=== PATIENT | female | born 1950 | race Caucasian/White ===

== ENCOUNTER 2018-06-08 21:34 | Emergency (ER) | payer BC ==
[2018-06-08 22:02] VITALS: BP 133/84; PULSE 60; TEMP 98; O2SAT 99
--- NOTE | 2018-06-08 23:50 | C.PDOC ---
History Of Present Illness 67 year old female presents to the ED c/o sudden onset left knee pain that worsens with movement. Patient reports she was showering and when she got put she stared feeling the pain. Patient denies direct trauma, slipping in the shower, weakness, numbness, LOC, headache, head injury. Time Seen by Provider: 06/08/18 22:32 Chief Complaint (Nursing): Lower Extremity Problem/Injury History Per: Patient History/Exam Limitations: no limitations Onset/Duration Of Symptoms: Hrs Current Symptoms Are (Timing): Still Present Recent travel outside of the [place]: No Additional History Per: Patient - Knee Description Of Injury: Other Currently Unable To: Bend Or Move Past Medical History Reviewed: Historical Data, Nursing Documentation, Vital Signs Vital Signs: Last Vital Signs Temp 98.0 F 06/08/18 21:59 Pulse 60 06/08/18 21:59 Resp 20 06/09/18 00:01 BP 133/84 06/08/18 21:59 Pulse Ox 99 06/08/18 23:50 - Medical History PMH: HTN, Hypothyroidism Denies: Chronic Kidney Disease Surgical History: No Surg Hx Family History: States: Unknown Family Hx - Social History Hx Alcohol Use: No Hx Substance Use: No - Immunization History Hx Tetanus Toxoid Vaccination: No Hx Influenza Vaccination: No Hx Pneumococcal Vaccination: No Review Of Systems Constitutional: Negative for: Fever, Chills Cardiovascular: Negative for: Chest Pain, Palpitations Respiratory: Negative for: Cough, Shortness of Breath Gastrointestinal: Negative for: Nausea, Vomiting Musculoskeletal: Positive for: Leg Pain Skin: Negative for: Rash Neurological: Negative for: Weakness, Numbness Physical Exam - Physical Exam Appears: Non-toxic, No Acute Distress Skin: Normal Color, Warm, Dry Head: Atraumatic, Normacephalic Eye(s): bilateral: Normal Inspection Oral Mucosa: Moist Neck: Normal ROM, No Midline Cervical Tenderness, Supple Chest: Symmetrical Cardiovascular: Rhythm Regular Respiratory: Normal Breath Sounds, No Rales, No Rhonchi, No Wheezing Gastrointestinal/Abdominal: Soft, No Tenderness, No Guarding, No Rebound Extremity: Normal ROM (pain present on movement and palpation to anterior and posterior left knee), Tenderness (on movement of anterior and posterior left knee), Capillary Refill (< 2 seconds), No Deformity, No Swelling Pulses: Left Dorsalis Pedis: Normal, Right Dorsalis Pedis: Normal Neurological/Psych: Oriented x3, Normal Speech, Normal Motor, Normal Sensation Gait: Steady ED Course And Treatment O2 Sat by Pulse Oximetry: 99 (ON RA) Pulse Ox Interpretation: Normal - Other Rad Left knee X-Ray X-Ray: Interpreted by Me, Viewed By Me Interpretation: no fracture or dislocation. DJD was observed Progress Note: Patient was given tylenol extra strenght, left knee was placed on an [place] warp done by the RN. Patient was advised to follow up with PMD. 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 - Scribe Statement The provider has reviewed the documentation as recorded by the Scribe Patrice Wan All medical record entries made by the Joanieibjake were at my direction and personally dictated by me. I have reviewed the chart and agree that the record accurately reflects my personal performance of the history, physical exam, medical decision making, and the department course for this patient. I have also personally directed, reviewed, and agree with the discharge instructions and disposition.
[2018-06-09 00:02] VITALS: RESP 20
--- NOTE | 2018-06-09 08:46 | RAD ---
Date of service: 06/08/2018 PROCEDURE: Left Knee Radiographs. HISTORY: Pain. COMPARISON: None. FINDINGS: BONES: Normal. No fracture. JOINTS: . Osteoarthritis. JOINT EFFUSION: Small OTHER FINDINGS: Quadriceps insertional enthesophyte IMPRESSION: Mild osteoarthrosis. No fracture or lytic lesion. Small suprapatellar joint effusion. Quadriceps insertional enthesophyte
== END 2018-06-09 00:01 | disposition home or self-care (01) ==
LOC: C.ER 21:34
DX: M25.562 Pain in left knee (principal)

== ENCOUNTER 2019-02-25 15:36 | Inpatient (IN) | payer BC, MEDICARE ==
[2019-02-25] MEDS ORDERED: Sodium Chloride 0.9% 500 ML IV ONE (16:34)
--- NOTE | 2019-02-25 16:49 | C.PDOC ---
History Of Present Illness 68 year old female presents for evaluation of RUQ pain and swelling that started today at 11am and has not abated. The pt notes having similar symptoms in the past that have resolved on its own. Pt admits she has not had spicy food today or last night. For breakfast she had toast and cheese and a yogurt for lunch. Denies CP, SOB, fever, chills, nausea, vomiting, diarrhea, and any other associated symptoms. SHx: (-) abdominal surgery PMHx: (-) gastritis Time Seen by Provider: 02/25/19 16:15 Chief Complaint (Nursing): Abdominal Pain History Per: Patient History/Exam Limitations: no limitations Onset/Duration Of Symptoms: Hrs Current Symptoms Are (Timing): Still Present Location Of Pain/Discomfort: RUQ Radiation Of Pain To:: None Quality Of Discomfort: "Pain" Associated Symptoms: denies: Fever, Chills, Nausea, Vomiting, Chest Pain Recent travel outside of the [place]: No Past Medical History Reviewed: Historical Data, Nursing Documentation, Vital Signs Vital Signs: Last Vital Signs Temp 97.9 F 02/25/19 16:08 Pulse 62 02/25/19 16:08 Resp 18 02/25/19 16:08 BP 166/105 H 02/25/19 16:08 Pulse Ox 99 02/25/19 16:08 - Medical History PMH: HTN, Hypothyroidism Denies: Chronic Kidney Disease Family History: States: Unknown Family Hx - Social History Hx Alcohol Use: No Hx Substance Use: No - Immunization History Hx Tetanus Toxoid Vaccination: No Hx Influenza Vaccination: No Hx Pneumococcal Vaccination: No Review Of Systems Except As Marked, All Systems Reviewed And Found Negative. Constitutional: Negative for: Fever, Chills Cardiovascular: Negative for: Chest Pain Respiratory: Negative for: Shortness of Breath Gastrointestinal: Positive for: Abdominal Pain (RUQ pain and swelling. ). Negative for: Nausea, Vomiting, Diarrhea Physical Exam - Physical Exam Appears: Non-toxic, No Acute Distress Skin: Warm, Dry Head: Atraumatic, Normacephalic Eye(s): bilateral: Normal Inspection Oral Mucosa: Moist Neck: Normal ROM, Supple Chest: Symmetrical, No Deformity Cardiovascular: Rhythm Regular, No Murmur Respiratory: Normal Breath Sounds, No Rales, No Rhonchi, No Wheezing Gastrointestinal/Abdominal: Soft, Tenderness (to the RUQ. ) Extremity: Bilateral: Atraumatic, No Pedal Edema, Normal Color And Temperature, Normal ROM Neurological/Psych: Oriented x3, Normal Speech, Normal Cognition ED Course And Treatment - Laboratory Results Result Diagrams: 02/25/19 17:08 02/25/19 17:08 O2 Sat by Pulse Oximetry: 99 (RA) Pulse Ox Interpretation: Normal - Other Rad Obstructive series X-Ray: Viewed By Me, Read By Radiologist Interpretation: FINDINGS: CHEST: Lungs: Clear. Cardiovascular: Normal size heart. No pulmonary vascular congestion. No aortic atherosclerotic calcification present. Pleura: No pleural fluid. No pneumothorax. Other findings: None. ABDOMEN AND PELVIS: Bowel: Unremarkable bowel gas pattern. No evidence of mechanical obstruction. Free air: None. Bones: Unremarkable. Other findings: None. IMPRESSION: Unremarkable radiographs of chest and abdomen. No evidence of mechanical bowel obstruction. Medical Decision Making Medical Decision Making: Initial plan: -EKG -Blood sent. -Obstructive series -Urinalysis Patient with elevated liver enzymes, no fever, no elevated WBC. Will get CT abdomen. Disposition - Disposition Disposition Time: 18:27 Condition: STABLE Forms: [employer] (Georgian) - Clinical Impression Clinical Impression: Abdominal pain - Scribe Statement The provider has reviewed the documentation as recorded by the Scribe (Leela Hector) Provider Attestation: All medical record entries made by the Scribe were at my direction and personally dictated by me. I have reviewed the chart and agree that the record accurately reflects my personal performance of the history, physical exam, medical decision making, and the department course for this patient. I have also personally directed, reviewed, and agree with the discharge instructions and disposition. Physician Patient Turnover Patient Signed Over To: Juan Carlos Valadez DO Handoff Comments: pending CT and final dispo
--- NOTE | 2019-02-25 17:04 | RAD ---
Date of service: 02/25/2019 PROCEDURE: Radiographs of the chest and abdomen (obstructive series) HISTORY: abd pain COMPARISON: No prior. TECHNIQUE: AP radiograph of the chest, with upright and supine radiographs of the abdomen. 3 views obtained. FINDINGS: CHEST: Lungs: Clear. Cardiovascular: Normal size heart. No pulmonary vascular congestion. No aortic atherosclerotic calcification present Pleura: No pleural fluid. No pneumothorax. Other findings: None. ABDOMEN AND PELVIS: Bowel: Unremarkable bowel gas pattern. No evidence of mechanical obstruction. Free air: None. Bones: Unremarkable. Other findings: None. IMPRESSION: Unremarkable radiographs of chest and abdomen. No evidence of mechanical bowel obstruction.
[2019-02-25 17:15] LABS: BASO % 0.6 % (0.0-2.0); EOS # 0.2 K/uL (0.0-0.7); EOS % 2.5 % (0.0-4.0); HEMOGLOBIN 13.6 g/dL (11.0-16.0); LYMPH # 2.1 K/uL (1.0-4.3); LYMPH % 24.1 % (20.0-40.0); MEAN CELL VOLUME 92.6 fL (81.0-99.0); MEAN CORPUSCULAR HEMOGLOBIN 30.3 pg (27.0-31.0); MEAN CORPUSCULAR HGB CONC 32.7 g/dL (33.0-37.0); MEAN PLATELET VOLUME 9.8 fL (7.2-11.7); MONO # 1.1 K/uL (0.0-0.8); MONO % 12.3 % (0.0-10.0); NEUT # 5.2 K/uL (1.8-7.0); NEUT % 60.5 % (50.0-75.0); RBC 4.5 Mil/uL (3.80-5.20); RED CELL DISTRIBUTION WIDTH 13.9 % (11.5-14.5); WHITE BLOOD COUNT 8.6 K/uL (4.8-10.8)
[2019-02-25 17:17] LABS: SQUAMOUS EPITHIAL 1 /hpf (0-5); URINE BACTERIA RARE (<OCC); URINE BILIRUBIN NEGATIVE (NEGATIVE); URINE BLOOD NEGATIVE (NEGATIVE); URINE CLARITY Clear (Clear); URINE COLOR Yellow (YELLOW); URINE GLUCOSE (UA) NORMAL (Normal); URINE LEUKOCYTE ESTERASE NEG Leu/uL (Negative); URINE PROTEIN NEGATIVE (NEGATIVE); URINE UROBILINOGEN NORMAL mg/dL (0.2-1.0)
[2019-02-25 17:24] LABS: ALB/GLOB RATIO 1.4 (1.0-2.1); ALBUMIN 4.4 g/dL (3.5-5.0); ALT/SGPT 166 U/L (9-52); AST/SGOT 240 U/L (14-36); BLOOD UREA NITROGEN 23 mg/dL (7-17); CALCIUM 9.7 mg/dl (8.6-10.4); GFR NON-AFRICAN AMERICAN 37; LIPASE 203 U/L (23-300)
[2019-02-25] MEDS ORDERED: Sodium Chloride 0.9% 1,000 ML IV ONE (17:53)
--- NOTE | 2019-02-25 19:16 | CP.PCM.CON ---
<Davey Chapin - Last Filed: 02/26/19 12:04> History of Present Illness - History of Present Illness History of Present Illness: General Surgery Consult Note for Dr. Hamilton Reason for Consult: abdominal pain, cholelithiasis 68 F with PMH that includes presents to [facility] for complaint of abdominal pain. Patient was seen and evaluated in the ED. Patient states pain began ear;lier today around 11:00 after eating breakfast. Patient reports sudden onset and states it had gotten progressively worse. Patient states that she experienced same type of pain two weeks ago after eating as well. Patient rates pain as moderate. She describes pain as constant, aching located in RUQ with radiation to epigastrium. Patient reports eating/drinking can aggravate symptoms but nothing specifically alleviates them. Admits to nausea. Denies fever/chills, cp, SOB, vomiting, diarrhea, constipation, incontinence, urinary symptoms. PMH: HTN, Hypothyroidism, CKD PSH: knee and shoulder surgery ALL: NKDA Review of Systems - Review of Systems All systems: reviewed and no additional remarkable complaints except (as per HPI) Past Patient History - Infectious Disease Hx of Infectious Diseases: None - Past Social History Smoking Status: Never Smoked - CARDIAC Hx Hypertension: Yes - PULMONARY Hx Respiratory Disorders: No - NEUROLOGICAL Hx Neurological Disorder: No - HEENT Hx HEENT Problems: No - RENAL Hx Chronic Kidney Disease: No - ENDOCRINE/METABOLIC Hx Hypothyroidism: Yes - HEMATOLOGICAL/ONCOLOGICAL Hx Blood Disorders: No - INTEGUMENTARY Hx Dermatological Problems: No - MUSCULOSKELETAL/RHEUMATOLOGICAL Hx Musculoskeletal Disorders: No - GASTROINTESTINAL Hx Gastrointestinal Disorders: No - GENITOURINARY/GYNECOLOGICAL Hx Genitourinary Disorders: No - PSYCHIATRIC Hx Substance Use: No - SURGICAL HISTORY Hx Surgeries: Yes Hx Section: Yes (X1) Hx Musculoskeletal Surgery: Yes (RIGHT SHOULDER) Other/Comment: Right knee surgery. - ANESTHESIA Hx Anesthesia: Yes Hx Anesthesia Reactions: No Hx Malignant Hyperthermia: No Meds Allergies/Adverse Reactions: Allergies Allergy/AdvReac Type Severity Reaction Status Date / Time No Known Allergies Allergy Verified 02/25/19 16:13 Physical Exam - Constitutional Appears: Well, Non-toxic, No Acute Distress - Head Exam Head Exam: ATRAUMATIC, NORMOCEPHALIC - Eye Exam Eye Exam: EOMI, Normal appearance Pupil Exam: PERRL - ENT Exam ENT Exam: Mucous Membranes Moist - Neck Exam Neck exam: Positive for: Full Rom - Respiratory Exam Respiratory Exam: NORMAL BREATHING PATTERN - Cardiovascular Exam Cardiovascular Exam: REGULAR RHYTHM - GI/Abdominal Exam GI & Abdominal Exam: Normal Bowel Sounds, Soft, Tenderness (miold). absent: Distended, Firm, Guarding, Hernia, Rebound, Rigid - Extremities Exam Extremities exam: Positive for: normal capillary refill, pedal pulses present. Negative for: calf tenderness - Back Exam Back exam: absent: CVA tenderness (L), CVA tenderness (R) - Neurological Exam Neurological exam: Alert, CN II-XII Intact, Oriented x3 - Psychiatric Exam Psychiatric exam: Normal Affect, Normal Mood - Skin Skin Exam: Dry, Intact, Normal Color, Warm Results - Vital Signs Recent Vital Signs: Last Vital Signs Temp 97.9 F 02/25/19 16:08 Pulse 62 02/25/19 16:08 Resp 18 02/25/19 16:08 BP 166/105 H 02/25/19 16:08 Pulse Ox 99 02/25/19 18:34 - Labs Result Diagrams: 02/25/19 17:08 02/25/19 17:08 Labs: Laboratory Results - last 24 hr 02/25/19 02/25/19 02/25/19 16:54 17:08 17:08 WBC 8.6 RBC 4.50 Hgb 13.6 Hct 41.7 MCV 92.6 MCH 30.3 MCHC 32.7 L RDW 13.9 Plt Count 204 MPV 9.8 Neut % (Auto) 60.5 Lymph % (Auto) 24.1 Polk % (Auto) 12.3 H Eos % (Auto) 2.5 Baso % (Auto) 0.6 Neut # (Auto) 5.2 Lymph # (Auto) 2.1 Polk # (Auto) 1.1 H Eos # (Auto) 0.2 Baso # (Auto) 0.0 Sodium 139 Potassium 4.7 Chloride 105 Carbon Dioxide 28 Anion Gap 11 BUN 23 H Creatinine 1.4 H Est GFR ( Amer) 45 Est GFR (Non-Af Amer) 37 Random Glucose 96 Calcium 9.7 Total Bilirubin 0.6 AST 240 H ALT 166 H Alkaline Phosphatase 73 Troponin I < 0.0120 Total Protein 7.4 Albumin 4.4 Globulin 3.1 Albumin/Globulin Ratio 1.4 Lipase 203 Urine Color Yellow Urine Clarity Clear Urine pH 5.0 Ur Specific Higdon 1.011 Urine Protein Negative Urine Glucose (UA) Normal Urine Ketones Negative Urine Blood Negative Urine Nitrate Negative Urine Bilirubin Negative Urine Urobilinogen Normal Ur Leukocyte Esterase Neg Urine WBC (Auto) 3 Urine RBC (Auto) 1 Ur Squamous Epith Cells 1 Urine Bacteria Rare Hyaline Casts 3-5 H Assessment & Plan - Assessment and Plan (Free Text) Assessment: 68 F who presents with abdominal pain and cholelithiasis Plan: -Diet as tolerated -Pain control -Anti-emetics PRN -f/u daily labs -Trend LFTs -f/u RUQ US -Discussed with Dr. Joy Chapin PGY2 - Date & Time Date: 02/25/19 Time: 20:00 <Pasquale Hamilton - Last Filed: 02/26/19 18:32> Meds - Medications Medications: Current Medications Aspirin (Ecotrin) 81 mg PO DAILY [facility] Last Admin: 02/26/19 09:38 Dose: 81 mg Enoxaparin Sodium (Lovenox) 40 mg SC DAILY [facility] Last Admin: 02/26/19 09:38 Dose: Not Given Gabapentin (Neurontin) 300 mg PO HS [facility] Piperacillin Sod/Tazobactam (Sod 3.375 gm/ Sodium Chloride) 100 mls @ 200 mls/hr IVPB Q8H [facility]; Protocol Last Admin: 02/26/19 14:48 Dose: 200 mls/hr Sodium Chloride (Sodium Chloride 0.9%) 1,000 mls @ 100 mls/hr IV .Q10H [facility] Levothyroxine Sodium (Synthroid) 75 mcg PO DAILY@0630 [facility] Last Admin: 02/26/19 05:59 Dose: 75 mcg Nebivolol (Bystolic) 10 mg PO DAILY [facility] Last Admin: 02/26/19 09:37 Dose: 10 mg Pantoprazole Sodium (Protonix Inj) 40 mg IVP DAILY [facility] Last Admin: 02/26/19 13:10 Dose: 40 mg Pneumococcal Polyvalent Vaccine (Pneumovax 23 Vaccine) 0.5 ml IM .ONCE ONE Stop: 03/01/19 10:01 Rosuvastatin Calcium (Crestor) 5 mg PO [facility] Results - Vital Signs Recent Vital Signs: Last Vital Signs Temp 98.1 F 02/26/19 15:00 Pulse 61 02/26/19 15:00 Resp 20 02/26/19 15:00 BP 156/79 H 02/26/19 15:00 Pulse Ox 97 02/26/19 15:36 - Labs Result Diagrams: 02/26/19 08:55 02/26/19 08:55 Labs: Laboratory Results - last 24 hr 02/26/19 02/26/19 02/26/19 08:55 08:55 08:55 WBC 5.9 RBC 4.03 Hgb 12.7 Hct 37.3 MCV 92.6 MCH 31.5 H MCHC 34.0 RDW 13.9 Plt Count 209 MPV 10.2 Neut % (Auto) 51.9 Lymph % (Auto) 29.2 Polk % (Auto) 13.8 H Eos % (Auto) 4.5 H Baso % (Auto) 0.6 Neut # (Auto) 3.0 Lymph # (Auto) 1.7 Polk # (Auto) 0.8 Eos # (Auto) 0.3 Baso # (Auto) 0.0 Sodium 138 Potassium 4.3 Chloride 108 H Carbon Dioxide 25 Anion Gap 9 L BUN 19 H Creatinine 1.3 H Est GFR ( Amer) 49 Est GFR (Non-Af Amer) 41 Random Glucose 87 Calcium 8.9 Total Bilirubin 0.5 Direct Bilirubin 0.2 AST 123 H D ALT 147 H Alkaline Phosphatase 77 Total Protein 6.7 Albumin 3.9 Globulin 2.8 Albumin/Globulin Ratio 1.4 TSH 3rd Generation 2.03 Hepatitis A IgM Ab Negative Hep Bs Antigen Negative Hep B Core IgM Ab Negative Hepatitis C Antibody Negative Attending/Attestation - Attestation I have personally seen and examined this patient.: Yes I have fully participated in the care of the patient.: Yes I have reviewed all pertinent clinical information: Yes Notes (Text): Pt was seen and examined at bedside Agree with above note and assessment Pt with Gallstone and RUQ Pain Abdomen: Soft, Non tender, Negative Soto's sign, ND Labs and Radiology reviewed Ass: Cholelithiasis with elevated LFTs Plan : IV antibiotics US of Abdomen in am Repeat Labs in am c.w current mx Plan d.w pt in detail Risk and benefit explained in detail.
[2019-02-25] MEDS ORDERED: Iodixanol 320 MG/ML 100 ML BOTTLE IV ONE (19:27)
[2019-02-26] MEDS ORDERED: Sodium Chloride 0.9% 1,000 ML IV SCH (00:30)
[2019-02-26] MEDS: Levothyroxine 75 MCG TAB PO SCH (05:59)
--- NOTE | 2019-02-26 06:05 | CT ---
Date of service: 02/25/2019 PROCEDURE: CT Abdomen and Pelvis without intravenous contrast HISTORY: URQ pain, elevated liver enzymes COMPARISON: None. TECHNIQUE: Axial and reformatted coronal and sagittal CT images of the abdomen and pelvis were obtained without IV or oral contrast administration.. Contrast dose: 0 Radiation dose: Total exam DLP = 565.14 mGy-cm. This CT exam was performed using one or more of the following dose reduction techniques: Automated exposure control, adjustment of the mA and/or kV according to patient size, and/or use of iterative reconstruction technique. FINDINGS: LOWER THORAX: There are linear opacity seen at the lower lobes likely scar tissue or atelectasis. LIVER: Unremarkable. No gross lesion or ductal dilatation. GALLBLADDER AND BILE DUCTS: Gallstone and diffuse gallbladder wall thickening is noted. No definite CT evidence of acute cholecystitis or biliary obstruction. PANCREAS: Unremarkable. No gross lesion or ductal dilatation. SPLEEN: Unremarkable. ADRENALS: Unremarkable. No mass. KIDNEYS AND URETERS: Unremarkable. No hydronephrosis. No solid mass. VASCULATURE: Unremarkable. No aortic aneurysm. Diffuse atherosclerotic calcification noted in the abdominal aorta and iliac arteries. BOWEL: Unremarkable. No obstruction. No gross mural thickening. APPENDIX: Unremarkable. Normal appendix. PERITONEUM: Unremarkable. No free fluid. No free air. LYMPH NODES: Unremarkable. No enlarged lymph nodes. BLADDER: Unremarkable. REPRODUCTIVE: Unremarkable. BONES: No acute fracture. OTHER FINDINGS: None. IMPRESSION: Gallstone and diffuse gallbladder wall thickening. No definite CT evidence of acute cholecystitis. If indicated further assessment by ultrasound may be obtained. Otherwise no CT evidence of acute pathology in the abdomen and pelvis. Preliminary report was submitted by [facility] Radiology contains concordant findings.
--- NOTE | 2019-02-26 08:19 | CP.PCM.CON ---
<HarjitduniaDarwin - Last Filed: 02/26/19 09:13> History of Present Illness - History of Present Illness History of Present Illness: GI fellow PGY4, consult note. Ania Kimble is a very pleasant 68F presenting with acute RUQ abdominal pain. The pain was a severe burning in the RUQ abdomen that started yesterday after eating breakfast ~11am. The pain lasted untili 10PM lastnight. The pain radiated to the back and nothing relieved the discomfort. She had similar symptoms before, ~2 weeks ago. She denies fevers, and vomiting. She last saw a GI, Dr. Lancaster, many years ago and had EGD and colonoscopy at that time and she states she had gastritis and ulcer at that time. She is taking pepcid as needed with minimal relief. Denies NSAID use. She was planning to see him this month, but the pain was too severe, so she came to the ED. She denies any history of liver disease. On admission, she was HDS, afebrile. CBC and BMP normal. Liver enzymes were moderately elevated ~200s. Tbili and alk phos normal. PMHx - Hypothyroidism, HTN, HLD, PUD PSHx - FMHx - Denies GI related cancers SocHx - Denies alcohol, tobacco. 12pt ROS completed and negative except for above. Past Patient History - Infectious Disease Hx of Infectious Diseases: None - Past Social History Smoking Status: Never Smoked - CARDIAC Hx Hypertension: Yes - PULMONARY Hx Respiratory Disorders: No - NEUROLOGICAL Hx Neurological Disorder: No - HEENT Hx HEENT Problems: No - RENAL Hx Chronic Kidney Disease: No - ENDOCRINE/METABOLIC Hx Hypothyroidism: Yes - HEMATOLOGICAL/ONCOLOGICAL Hx Blood Disorders: No - INTEGUMENTARY Hx Dermatological Problems: No - MUSCULOSKELETAL/RHEUMATOLOGICAL Hx Musculoskeletal Disorders: No - GASTROINTESTINAL Hx Gastrointestinal Disorders: No - GENITOURINARY/GYNECOLOGICAL Hx Genitourinary Disorders: No - PSYCHIATRIC Hx Substance Use: No - SURGICAL HISTORY Hx Surgeries: Yes Hx Section: Yes (X1) Hx Musculoskeletal Surgery: Yes (RIGHT SHOULDER) Other/Comment: Right knee surgery. - ANESTHESIA Hx Anesthesia: Yes Hx Anesthesia Reactions: No Hx Malignant Hyperthermia: No Meds Allergies/Adverse Reactions: Allergies Allergy/AdvReac Type Severity Reaction Status Date / Time No Known Allergies Allergy Verified 02/25/19 16:13 - Medications Medications: Current Medications Aspirin (Ecotrin) 81 mg PO DAILY [facility] Enoxaparin Sodium (Lovenox) 40 mg SC DAILY [facility] Gabapentin (Neurontin) 300 mg PO HS [facility] Sodium Chloride (Sodium Chloride 0.9%) 1,000 mls @ 70 mls/hr IV .[id number] [facility] Last Admin: 02/26/19 01:01 Dose: 70 mls/hr Levothyroxine Sodium (Synthroid) 75 mcg PO DAILY@0630 [facility] Last Admin: 02/26/19 05:59 Dose: 75 mcg Nebivolol (Bystolic) 10 mg PO DAILY [facility] Pantoprazole Sodium (Protonix Inj) 40 mg IVP DAILY [facility] Rosuvastatin Calcium (Crestor) 5 mg PO HS [facility] Physical Exam - Constitutional Appears: Non-toxic, No Acute Distress - Head Exam Head Exam: ATRAUMATIC, NORMAL INSPECTION - Eye Exam Eye Exam: EOMI, Normal appearance - ENT Exam ENT Exam: Mucous Membranes Moist, Normal Exam - Respiratory Exam Respiratory Exam: Clear to Auscultation Bilateral, NORMAL BREATHING PATTERN - Cardiovascular Exam Cardiovascular Exam: REGULAR RHYTHM, +S1, +S2 - GI/Abdominal Exam GI & Abdominal Exam: Normal Bowel Sounds, Soft, Tenderness. absent: Distended, Guarding, Organomegaly Additional comments: Mild tenderness to deep palpation of the RUQ. - Neurological Exam Neurological exam: Alert, CN II-XII Intact, Oriented x3 - Psychiatric Exam Psychiatric exam: Normal Affect, Normal Mood - Skin Skin Exam: Normal Color, Warm Results - Vital Signs Recent Vital Signs: Last Vital Signs Temp 97.8 F 02/26/19 00:00 Pulse 71 02/26/19 00:00 Resp 20 02/26/19 00:00 BP 169/92 H 02/26/19 00:00 Pulse Ox 96 02/26/19 07:57 - Labs Result Diagrams: 02/26/19 08:55 02/25/19 17:08 Labs: Laboratory Results - last 24 hr 02/25/19 02/25/19 02/25/19 16:54 17:08 17:08 WBC 8.6 RBC 4.50 Hgb 13.6 Hct 41.7 MCV 92.6 MCH 30.3 MCHC 32.7 L RDW 13.9 Plt Count 204 MPV 9.8 Neut % (Auto) 60.5 Lymph % (Auto) 24.1 [place] % (Auto) 12.3 H Eos % (Auto) 2.5 Baso % (Auto) 0.6 Neut # (Auto) 5.2 Lymph # (Auto) 2.1 [place] # (Auto) 1.1 H Eos # (Auto) 0.2 Baso # (Auto) 0.0 Sodium 139 Potassium 4.7 Chloride 105 Carbon Dioxide 28 Anion Gap 11 BUN 23 H Creatinine 1.4 H Est GFR ( Amer) 45 Est GFR (Non-Af Amer) 37 Random Glucose 96 Calcium 9.7 Total Bilirubin 0.6 AST 240 H ALT 166 H Alkaline Phosphatase 73 Troponin I < 0.0120 Total Protein 7.4 Albumin 4.4 Globulin 3.1 Albumin/Globulin Ratio 1.4 Lipase 203 Urine Color Yellow Urine Clarity Clear Urine pH 5.0 Ur Specific [place] 1.011 Urine Protein Negative Urine Glucose (UA) Normal Urine Ketones Negative Urine Blood Negative Urine Nitrate Negative Urine Bilirubin Negative Urine Urobilinogen Normal Ur Leukocyte Esterase Neg Urine WBC (Auto) 3 Urine RBC (Auto) 1 Ur Squamous Epith Cells 1 Urine Bacteria Rare Hyaline Casts 3-5 H Assessment & Plan - Assessment and Plan (Free Text) Assessment: #Acute abdominal pain - suspected PUD vs symptomatic gallstones #Elevated Liver Enzymes #Hypothyroid #HTN/HLD PLAN: -CT reviewed, showing gallstones, retained stool in colon. No obvious acute cholecystitis -Obtain hepatitis panel, TSH -U/S abdomen PENDING -Start PPI -Recommend EGD prior to surgery, likely Wednesday -f/u surgery recommendations. -Monitor liver tests -NPO PM for EGD -I will call Gerald, her son, to update him on plan. Case discussed with Dr. Garcia, see attestation - Date & Time Date: 02/26/19 Time: 08:20 <Yobany Garcia - Last Filed: 02/26/19 22:35> Meds - Medications Medications: Current Medications Aspirin (Ecotrin) 81 mg PO DAILY [facility] Last Admin: 02/26/19 09:38 Dose: 81 mg Enoxaparin Sodium (Lovenox) 40 mg SC DAILY [facility] Last Admin: 02/26/19 09:38 Dose: Not Given Gabapentin (Neurontin) 300 mg PO [facility] Last Admin: 02/26/19 22:20 Dose: 300 mg Piperacillin Sod/Tazobactam (Sod 3.375 gm/ Sodium Chloride) 100 mls @ 200 mls/hr IVPB Q8H [facility]; Protocol Last Admin: 02/26/19 22:19 Dose: 200 mls/hr Sodium Chloride (Sodium Chloride 0.9%) 1,000 mls @ 100 mls/hr IV .Q10H [facility] Levothyroxine Sodium (Synthroid) 75 mcg PO DAILY@0630 [facility] Last Admin: 02/26/19 05:59 Dose: 75 mcg Nebivolol (Bystolic) 10 mg PO DAILY [facility] Last Admin: 02/26/19 09:37 Dose: 10 mg Pantoprazole Sodium (Protonix Inj) 40 mg IVP DAILY [facility] Last Admin: 02/26/19 13:10 Dose: 40 mg Pneumococcal Polyvalent Vaccine (Pneumovax 23 Vaccine) 0.5 ml IM .ONCE ONE Stop: 03/01/19 10:01 Rosuvastatin Calcium (Crestor) 5 mg PO [facility] Last Admin: 02/26/19 22:20 Dose: 5 mg Results - Vital Signs Recent Vital Signs: Last Vital Signs Temp 98.1 F 02/26/19 15:00 Pulse 61 02/26/19 15:00 Resp 20 02/26/19 15:00 BP 156/79 H 02/26/19 15:00 Pulse Ox 97 02/26/19 15:36 - Labs Result Diagrams: 02/26/19 08:55 02/26/19 08:55 Labs: Laboratory Results - last 24 hr 02/26/19 02/26/19 02/26/19 08:55 08:55 08:55 WBC 5.9 RBC 4.03 Hgb 12.7 Hct 37.3 MCV 92.6 MCH 31.5 H MCHC 34.0 RDW 13.9 Plt Count 209 MPV 10.2 Neut % (Auto) 51.9 Lymph % (Auto) 29.2 [place] % (Auto) 13.8 H Eos % (Auto) 4.5 H Baso % (Auto) 0.6 Neut # (Auto) 3.0 Lymph # (Auto) 1.7 [place] # (Auto) 0.8 Eos # (Auto) 0.3 Baso # (Auto) 0.0 Sodium 138 Potassium 4.3 Chloride 108 H Carbon Dioxide 25 Anion Gap 9 L BUN 19 H Creatinine 1.3 H Est GFR ( Amer) 49 Est GFR (Non-Af Amer) 41 Random Glucose 87 Calcium 8.9 Total Bilirubin 0.5 Direct Bilirubin 0.2 AST 123 H D ALT 147 H Alkaline Phosphatase 77 Total Protein 6.7 Albumin 3.9 Globulin 2.8 Albumin/Globulin Ratio 1.4 TSH 3rd Generation 2.03 Hepatitis A IgM Ab Negative Hep Bs Antigen Negative Hep B Core IgM Ab Negative Hepatitis C Antibody Negative Attending/Attestation - Attestation I have personally seen and examined this patient.: Yes I have fully participated in the care of the patient.: Yes I have reviewed all pertinent clinical information: Yes Notes (Text): 02/26/19 22:34 Chart reviewed. The pt examined this am and discussed with Dr. Young. Agree with the above-documented findings, assessment and recommendations.
[2019-02-26 09:09] LABS: BASO % 0.6 % (0.0-2.0); EOS # 0.3 K/uL (0.0-0.7); EOS % 4.5 % (0.0-4.0); HEMOGLOBIN 12.7 g/dL (11.0-16.0); LYMPH # 1.7 K/uL (1.0-4.3); LYMPH % 29.2 % (20.0-40.0); MEAN CELL VOLUME 92.6 fL (81.0-99.0); MEAN CORPUSCULAR HEMOGLOBIN 31.5 pg (27.0-31.0); MEAN PLATELET VOLUME 10.2 fL (7.2-11.7); MONO # 0.8 K/uL (0.0-0.8); MONO % 13.8 % (0.0-10.0); NEUT % 51.9 % (50.0-75.0); NRBC % 0.1 % (0.0-2.0); RBC 4.03 Mil/uL (3.80-5.20); RED CELL DISTRIBUTION WIDTH 13.9 % (11.5-14.5); WHITE BLOOD COUNT 5.9 K/uL (4.8-10.8)
[2019-02-26 09:25] LABS: ALB/GLOB RATIO 1.4 (1.0-2.1); ALBUMIN 3.9 g/dL (3.5-5.0); BILIRUBIN,DIRECT 0.2 mg/dL (0.0-0.4); CALCIUM 8.9 mg/dl (8.6-10.4)
[2019-02-26] MEDS: Enoxaparin 40 mg Syringe SC SCH (09:38)
[2019-02-26 09:51] LABS: HEPATITIS B SURFACE AG Negative (NEGATIVE)
[2019-02-26 09:57] LABS: HEPATITIS A IGM NEGATIVE (NEGATIVE); HEPATITIS B CORE AB NEGATIVE (NEGATIVE)
[2019-02-26 10:09] LABS: HEPATITIS C ANTIBODY NEGATIVE (NEGATIVE)
--- NOTE | 2019-02-26 10:38 | US ---
Date of service: 02/26/2019 HISTORY: cholelithiasis, elevated LFTs COMPARISON: None. TECHNIQUE: Sonographic evaluation of the right upper quadrant of the abdomen. FINDINGS: LIVER: Measures 11.4 cm in length. Heterogeneous diffuse increased echogenicity of the liver parenchyma. No mass. No intrahepatic bile duct dilatation. GALLBLADDER: There are small echogenic foci in gallbladder at the gallbladder wall likely represent adenomyomatosis. No evidence of significant gallbladder wall thickening or pericholecystic fluid. COMMON BILE DUCT: Measures 9.3 x 3.9 x 4.1 mm. No stones. No dilatation. PANCREAS: Unremarkable as visualized. No mass. No ductal dilatation. RIGHT KIDNEY: Measures cm in length. Normal echogenicity. No calculus, mass, or hydronephrosis. AORTA: No aneurysmal dilatation. IVC: Unremarkable. OTHER FINDINGS: None . 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 Heterogeneous mildly echogenic liver suggestive but nonspecific for hepatic steatosis.
--- NOTE | 2019-02-26 14:28 | CP.PCM.PN ---
<MerchantAnmol - Last Filed: 02/26/19 14:12> Subjective - Date & Time of Evaluation Date of Evaluation: 02/26/19 Time of Evaluation: 14:12 - Subjective Subjective: Surgery Progress note- Dr. Hamilton Patient seen and examined at bedside. Abdominal pain improved. tolerating CLD. Denies current nausea, vomiting, fevers chills. +OOB and ambulating Objective - Vital Signs/Intake and Output Vital Signs (last 24 hours): Temp Pulse Resp BP Pulse Ox 97.3 F L 74 20 155/91 H 97 02/26/19 08:22 02/26/19 08:22 02/26/19 08:22 02/26/19 08:22 02/26/19 08:22 - Medications Medications: Current Medications Aspirin (Ecotrin) 81 mg PO DAILY [facility] Last Admin: 02/26/19 09:38 Dose: 81 mg Enoxaparin Sodium (Lovenox) 40 mg SC DAILY [facility] Last Admin: 02/26/19 09:38 Dose: Not Given Gabapentin (Neurontin) 300 mg PO [facility] Sodium Chloride (Sodium Chloride 0.9%) 1,000 mls @ 70 mls/hr IV .[id number] [facility] Last Admin: 02/26/19 01:01 Dose: 70 mls/hr Piperacillin Sod/Tazobactam (Sod 3.375 gm/ Sodium Chloride) 100 mls @ 200 mls/hr IVPB Q8H [facility]; Protocol Levothyroxine Sodium (Synthroid) 75 mcg PO DAILY@0630 [facility] Last Admin: 02/26/19 05:59 Dose: 75 mcg Nebivolol (Bystolic) 10 mg PO DAILY [facility] Last Admin: 02/26/19 09:37 Dose: 10 mg Pantoprazole Sodium (Protonix Inj) 40 mg IVP DAILY [facility] Last Admin: 02/26/19 13:10 Dose: 40 mg Rosuvastatin Calcium (Crestor) 5 mg PO [facility] - Labs Labs: 02/26/19 08:55 02/26/19 08:55 - Constitutional Appears: Non-toxic, No Acute Distress - Head Exam Head Exam: ATRAUMATIC - Eye Exam Eye Exam: EOMI. absent: Scleral icterus - ENT Exam ENT Exam: Mucous Membranes Moist - Respiratory Exam Respiratory Exam: NORMAL BREATHING PATTERN. absent: Accessory Muscle Use, Res piratory Distress - Cardiovascular Exam Cardiovascular Exam: REGULAR RHYTHM. absent: Bradycardia, Tachycardia - GI/Abdominal Exam GI & Abdominal Exam: Soft, Tenderness (tenderness to deep palpation RUQ). absent: Distended, Firm, Guarding, Rigid - Extremities Exam Extremities Exam: absent: Calf Tenderness - Neurological Exam Neurological Exam: Alert, Awake, Oriented x3 - Psychiatric Exam Psychiatric exam: Normal Affect - Skin Skin Exam: Intact, Warm Assessment and Plan - Assessment and Plan (Free Text) Assessment: 68F w/ symptomatic cholelithiasis Plan: - NPO after MN - IVF/Abx - Plan for Cholecystectomy Wednesday02/27/19 - anti-emetic and analgesia PRN - discussed w/ [facility] <Pasquale Hamilton - Last Filed: 02/26/19 18:35> Objective - Vital Signs/Intake and Output Vital Signs (last 24 hours): Temp Pulse Resp BP Pulse Ox 98.1 F 61 20 156/79 H 97 02/26/19 15:00 02/26/19 15:00 02/26/19 15:00 02/26/19 15:00 02/26/19 15:36 Intake and Output: 02/26/19 02/26/19 06:59 18:59 Intake Total 1700 Balance 1700 - Medications Medications: Current Medications Aspirin (Ecotrin) 81 mg PO DAILY [facility] Last Admin: 02/26/19 09:38 Dose: 81 mg Enoxaparin Sodium (Lovenox) 40 mg SC DAILY [facility] Last Admin: 02/26/19 09:38 Dose: Not Given Gabapentin (Neurontin) 300 mg PO HS [facility] Piperacillin Sod/Tazobactam (Sod 3.375 gm/ Sodium Chloride) 100 mls @ 200 mls/hr IVPB Q8H [facility]; Protocol Last Admin: 02/26/19 14:48 Dose: 200 mls/hr Sodium Chloride (Sodium Chloride 0.9%) 1,000 mls @ 100 mls/hr IV .Q10H [facility] Levothyroxine Sodium (Synthroid) 75 mcg PO DAILY@0630 [facility] Last Admin: 02/26/19 05:59 Dose: 75 mcg Nebivolol (Bystolic) 10 mg PO DAILY [facility] Last Admin: 02/26/19 09:37 Dose: 10 mg Pantoprazole Sodium (Protonix Inj) 40 mg IVP DAILY [facility] Last Admin: 02/26/19 13:10 Dose: 40 mg Pneumococcal Polyvalent Vaccine (Pneumovax 23 Vaccine) 0.5 ml IM .ONCE ONE Stop: 03/01/19 10:01 Rosuvastatin Calcium (Crestor) 5 mg PO HS [facility] - Labs Labs: 02/26/19 08:55 02/26/19 08:55 Attending/Attestation - Attestation I have personally seen and examined this patient.: Yes I have fully participated in the care of the patient.: Yes I have reviewed all pertinent clinical information, including history, physical exam and plan: Yes Notes (Text): Pt with Cholelithiasis with Cholecystitis US of abdomen and CT scan reviewed. OR for Lap Cholecystectomy tomorrow Consent C.w IV antibiotics NPO, IVF Plan d.w pt in detail Risk and benefit explained in detail.
[2019-02-26] MEDS: Piperacillin/Tazobact 3.375 GM in Sodium Chloride 100 ML IVPB SCH ×2 (14:48→22:19)
--- NOTE | 2019-02-26 16:59 | CP.PCM.HP ---
Past Patient History - Infectious Disease Hx of Infectious Diseases: None - Past Social History Smoking Status: Never Smoked - CARDIAC Hx Hypertension: Yes - PULMONARY Hx Respiratory Disorders: No - NEUROLOGICAL Hx Neurological Disorder: No - HEENT Hx HEENT Problems: No - RENAL Hx Chronic Kidney Disease: No - ENDOCRINE/METABOLIC Hx Hypothyroidism: Yes - HEMATOLOGICAL/ONCOLOGICAL Hx Blood Disorders: No - INTEGUMENTARY Hx Dermatological Problems: No - MUSCULOSKELETAL/RHEUMATOLOGICAL Hx Musculoskeletal Disorders: No - GASTROINTESTINAL Hx Gastrointestinal Disorders: No - GENITOURINARY/GYNECOLOGICAL Hx Genitourinary Disorders: No - PSYCHIATRIC Hx Substance Use: No - SURGICAL HISTORY Hx Surgeries: Yes Hx Section: Yes (X1) Hx Musculoskeletal Surgery: Yes (RIGHT SHOULDER) Other/Comment: Right knee surgery. - ANESTHESIA Hx Anesthesia: Yes Hx Anesthesia Reactions: No Hx Malignant Hyperthermia: No Meds Allergies/Adverse Reactions: Allergies Allergy/AdvReac Type Severity Reaction Status Date / Time No Known Allergies Allergy Verified 02/25/19 16:13 Physical Exam - Constitutional Appears: Well - Head Exam Head Exam: ATRAUMATIC, NORMAL INSPECTION, NORMOCEPHALIC - Eye Exam Eye Exam: EOMI, Normal appearance, PERRL Pupil Exam: NORMAL ACCOMODATION, PERRL - ENT Exam ENT Exam: Mucous Membranes Moist, Normal Exam - Neck Exam Neck exam: Positive for: Normal Inspection - Respiratory Exam Respiratory Exam: Decreased Breath Sounds - Cardiovascular Exam Cardiovascular Exam: REGULAR RHYTHM, +S1, +S2 - GI/Abdominal Exam GI & Abdominal Exam: Diminished Bowel Sounds, Soft - Rectal Exam Rectal Exam: Deferred - Neurological Exam Neurological exam: Oriented x3 Results - Vital Signs Recent Vital Signs: Last Vital Signs Temp 98.1 F 02/26/19 15:00 Pulse 61 02/26/19 15:00 Resp 20 02/26/19 15:00 BP 156/79 H 02/26/19 15:00 Pulse Ox 97 02/26/19 15:36 - Labs Result Diagrams: 02/26/19 08:55 02/26/19 08:55 Labs: Laboratory Results - last 24 hr 02/25/19 02/25/19 02/25/19 16:54 17:08 17:08 WBC 8.6 RBC 4.50 Hgb 13.6 Hct 41.7 MCV 92.6 MCH 30.3 MCHC 32.7 L RDW 13.9 Plt Count 204 MPV 9.8 Neut % (Auto) 60.5 Lymph % (Auto) 24.1 [place] % (Auto) 12.3 H Eos % (Auto) 2.5 Baso % (Auto) 0.6 Neut # (Auto) 5.2 Lymph # (Auto) 2.1 [place] # (Auto) 1.1 H Eos # (Auto) 0.2 Baso # (Auto) 0.0 Sodium 139 Potassium 4.7 Chloride 105 Carbon Dioxide 28 Anion Gap 11 BUN 23 H Creatinine 1.4 H Est GFR ( Amer) 45 Est GFR (Non-Af Amer) 37 Random Glucose 96 Calcium 9.7 Total Bilirubin 0.6 Direct Bilirubin AST 240 H ALT 166 H Alkaline Phosphatase 73 Troponin I < 0.0120 Total Protein 7.4 Albumin 4.4 Globulin 3.1 Albumin/Globulin Ratio 1.4 Lipase 203 TSH 3rd Generation Urine Color Yellow Urine Clarity Clear Urine pH 5.0 Ur Specific [place] 1.011 Urine Protein Negative Urine Glucose (UA) Normal Urine Ketones Negative Urine Blood Negative Urine Nitrate Negative Urine Bilirubin Negative Urine Urobilinogen Normal Ur Leukocyte Esterase Neg Urine WBC (Auto) 3 Urine RBC (Auto) 1 Ur Squamous Epith Cells 1 Urine Bacteria Rare Hyaline Casts 3-5 H Hepatitis A IgM Ab Hep Bs Antigen Hep B Core IgM Ab Hepatitis C Antibody 02/26/19 02/26/19 02/26/19 08:55 08:55 08:55 WBC 5.9 RBC 4.03 Hgb 12.7 Hct 37.3 MCV 92.6 MCH 31.5 H MCHC 34.0 RDW 13.9 Plt Count 209 MPV 10.2 Neut % (Auto) 51.9 Lymph % (Auto) 29.2 [place] % (Auto) 13.8 H Eos % (Auto) 4.5 H Baso % (Auto) 0.6 Neut # (Auto) 3.0 Lymph # (Auto) 1.7 [place] # (Auto) 0.8 Eos # (Auto) 0.3 Baso # (Auto) 0.0 Sodium 138 Potassium 4.3 Chloride 108 H Carbon Dioxide 25 Anion Gap 9 L BUN 19 H Creatinine 1.3 H Est GFR ( Amer) 49 Est GFR (Non-Af Amer) 41 Random Glucose 87 Calcium 8.9 Total Bilirubin 0.5 Direct Bilirubin 0.2 AST 123 H D ALT 147 H Alkaline Phosphatase 77 Troponin I Total Protein 6.7 Albumin 3.9 Globulin 2.8 Albumin/Globulin Ratio 1.4 Lipase TSH 3rd Generation 2.03 Urine Color Urine Clarity Urine pH Ur Specific [place] Urine Protein Urine Glucose (UA) Urine Ketones Urine Blood Urine Nitrate Urine Bilirubin Urine Urobilinogen Ur Leukocyte Esterase Urine WBC (Auto) Urine RBC (Auto) Ur Squamous Epith Cells Urine Bacteria Hyaline Casts Hepatitis A IgM Ab Negative Hep Bs Antigen Negative Hep B Core IgM Ab Negative Hepatitis C Antibody Negative
[2019-02-27] MEDS: Sodium Chloride 0.9% 1,000 ML IV SCH ×4 (04:19→21:59)
[2019-02-27] MEDS: Piperacillin/Tazobact 3.375 GM in Sodium Chloride 100 ML IVPB SCH ×3 (04:19→21:58)
[2019-02-27] MEDS: Levothyroxine 75 MCG TAB PO SCH (06:20)
[2019-02-27 07:41] LABS: BASO % 0.9 % (0.0-2.0); EOS # 0.2 K/uL (0.0-0.7); EOS % 5.2 % (0.0-4.0); HEMOGLOBIN 13.2 g/dL (11.0-16.0); LYMPH # 1.5 K/uL (1.0-4.3); LYMPH % 31.8 % (20.0-40.0); MEAN CELL VOLUME 93.2 fL (81.0-99.0); MEAN CORPUSCULAR HEMOGLOBIN 31.2 pg (27.0-31.0); MEAN CORPUSCULAR HGB CONC 33.5 g/dL (33.0-37.0); MEAN PLATELET VOLUME 10.2 fL (7.2-11.7); MONO # 0.6 K/uL (0.0-0.8); MONO % 12.9 % (0.0-10.0); NEUT # 2.3 K/uL (1.8-7.0); NEUT % 49.2 % (50.0-75.0); RBC 4.25 Mil/uL (3.80-5.20); RED CELL DISTRIBUTION WIDTH 13.9 % (11.5-14.5); WHITE BLOOD COUNT 4.7 K/uL (4.8-10.8)
--- NOTE | 2019-02-27 07:50 | CP.PCM.PN ---
<Davey Chapin - Last Filed: 02/27/19 19:03> Subjective - Date & Time of Evaluation Date of Evaluation: 02/27/19 Time of Evaluation: 07:30 - Subjective Subjective: Surgery Progress note- Dr. Hamilton Patient seen and examined at bedside. Abdominal pain improving. She is tolerating diet. No complaints at this time. Denies nausea, vomiting, fevers chills. +flatus, BM, +OOB and ambulating Objective - Vital Signs/Intake and Output Vital Signs (last 24 hours): Temp Pulse Resp BP Pulse Ox 97.8 F 63 20 138/89 96 02/27/19 07:00 02/27/19 07:00 02/27/19 07:00 02/27/19 07:00 02/27/19 07:00 Intake and Output: 02/27/19 02/27/19 06:59 18:59 Intake Total 800 Balance 800 - Medications Medications: Current Medications Aspirin (Ecotrin) 81 mg PO DAILY [facility] Last Admin: 02/26/19 09:38 Dose: 81 mg Enoxaparin Sodium (Lovenox) 40 mg SC DAILY [facility] Last Admin: 02/26/19 09:38 Dose: Not Given Gabapentin (Neurontin) 300 mg PO HS [facility] Last Admin: 02/26/19 22:20 Dose: 300 mg Piperacillin Sod/Tazobactam (Sod 3.375 gm/ Sodium Chloride) 100 mls @ 200 mls/h r IVPB Q8H [facility]; Protocol Last Admin: 02/27/19 04:19 Dose: 200 mls/hr Sodium Chloride (Sodium Chloride 0.9%) 1,000 mls @ 100 mls/hr IV .Q10H [facility] Last Admin: 02/27/19 04:22 Dose: Not Given Levothyroxine Sodium (Synthroid) 75 mcg PO DAILY@0630 [facility] Last Admin: 02/27/19 06:20 Dose: 75 mcg Nebivolol (Bystolic) 10 mg PO DAILY [facility] Last Admin: 02/26/19 09:37 Dose: 10 mg Pantoprazole Sodium (Protonix Inj) 40 mg IVP DAILY [facility] Last Admin: 02/26/19 13:10 Dose: 40 mg Pneumococcal Polyvalent Vaccine (Pneumovax 23 Vaccine) 0.5 ml IM .ONCE ONE Stop: 03/01/19 10:01 Rosuvastatin Calcium (Crestor) 5 mg PO HS [facility] Last Admin: 02/26/19 22:20 Dose: 5 mg - Labs Labs: 02/27/19 07:28 02/26/19 08:55 - Additional Findings Additional findings: - Constitutional Appears: Non-toxic, No Acute Distress - Head Exam Head Exam: ATRAUMATIC - Eye Exam Eye Exam: EOMI. absent: Scleral icterus - ENT Exam ENT Exam: Mucous Membranes Moist - Respiratory Exam Respiratory Exam: NORMAL BREATHING PATTERN. absent: Accessory Muscle Use, Respiratory Distress - Cardiovascular Exam Cardiovascular Exam: REGULAR RHYTHM. absent: Bradycardia, Tachycardia - GI/Abdominal Exam GI & Abdominal Exam: Soft, Tenderness (tenderness to deep palpation RUQ). absent: Distended, Firm, Guarding, Rigid - Extremities Exam Extremities Exam: absent: Calf Tenderness - Neurological Exam Neurological Exam: Alert, Awake, Oriented x3 - Psychiatric Exam Psychiatric exam: Normal Affect - Skin Skin Exam: Intact, Warm Assessment and Plan - Assessment and Plan (Free Text) Assessment: 68F w/ symptomatic cholelithiasis Plan: - Diet as tolerated - MRCP without filling defect - LFTs downtrending - Plan for Cholecystectomy Wednesday03/01/19 - anti-emetic and analgesia PRN - discussed w/ Dr. Joy Chapin PGY2 <Pasquale Hamilton - Last Filed: 03/01/19 17:27> Objective - Vital Signs/Intake and Output Vital Signs (last 24 hours): Temp Pulse Resp BP Pulse Ox 97.9 F 66 20 122/75 93 L 03/01/19 11:10 03/01/19 11:10 03/01/19 11:10 03/01/19 11:10 03/01/19 11:10 Intake and Output: 03/01/19 03/01/19 06:59 18:59 Intake Total 500 1565 Balance 500 1565 - Medications Medications: Current Medications Aspirin (Ecotrin) 81 mg PO DAILY [facility] Last Admin: 03/01/19 10:52 Dose: Not Given Brimonidine Tartrate (Alphagan 0.2% Opht) 1 ml OU BID [facility] Last Admin: 03/01/19 10:52 Dose: Not Given Enoxaparin Sodium (Lovenox) 40 mg SC DAILY [facility] Last Admin: 02/28/19 09:54 Dose: Not Given Gabapentin (Neurontin) 300 mg PO HS [facility] Last Admin: 02/28/19 21:04 Dose: 300 mg Home Med (Patient's Own Drops) 1 drop OU HS [facility] Last Admin: 02/28/19 21:08 Dose: 1 drop Piperacillin Sod/Tazobactam (Sod 2.25 gm/ Sodium Chloride) 100 mls @ 200 mls/hr IVPB Q8H [facility]; Protocol Last Admin: 03/01/19 13:40 Dose: 200 mls/hr Levothyroxine Sodium (Synthroid) 75 mcg PO DAILY@0630 [facility] Last Admin: 03/01/19 05:30 Dose: Not Given Nebivolol (Bystolic) 10 mg PO DAILY [facility] Last Admin: 03/01/19 10:52 Dose: Not Given Pantoprazole Sodium (Protonix Inj) 40 mg IVP DAILY [facility] Last Admin: 03/01/19 10:52 Dose: Not Given Pneumococcal Polyvalent Vaccine (Pneumovax 23 Vaccine) 0.5 ml IM .ONCE ONE Stop: 03/02/19 10:01 Rosuvastatin Calcium (Crestor) 5 mg PO [facility] Last Admin: 02/26/19 22:20 Dose: 5 mg Tobramycin/Dexamethasone (Tobradex Opht Susp) 0 ml OU Q4 [facility] Stop: 03/02/19 14:23 - Labs Labs: 03/01/19 15:04 03/01/19 15:04 PT 11.7 SECONDS (9.7-12.2) 03/01/19 15:04 INR 1.1 03/01/19 15:04 APTT 31 SECONDS (21-34) 03/01/19 15:04 Attending/Attestation - Attestation I have personally seen and examined this patient.: Yes I have fully participated in the care of the patient.: Yes I have reviewed all pertinent clinical information, including history, physical exam and plan: Yes Notes (Text): Pt was seen and examined at bedside Agree with above note and assessment Pt had EGD today suggestive of Gastritis LFT is trending up f.u Hepatitis panel Will plan Lap Cholecystectomy on wednesday Plan d.w pt in detail.
[2019-02-27 07:51] LABS: ALB/GLOB RATIO 1.5 (1.0-2.1); ALBUMIN 4.1 g/dL (3.5-5.0); CALCIUM 9.1 mg/dl (8.6-10.4)
[2019-02-27] MEDS: Enoxaparin 40 mg Syringe SC SCH (09:04)
[2019-02-27] MEDS ORDERED: Lactated Ringer's 1,000 ML IV ONE (09:10)
[2019-02-27] MEDS ORDERED: Propofol 10 mg/ml Inj (20 ML) ONE (09:14)
[2019-02-27 10:23] LABS: IMMUNOGLOBULIN G 1040.3 mg/dL (700.0-1600.0); TRANSFERRIN 222.73 mg/dL (206-381)
--- NOTE | 2019-02-27 13:42 | CP.PCM.PN ---
Subjective - Date & Time of Evaluation Date of Evaluation: 02/27/19 - Subjective Subjective: Patient seen and examined today No nausea No vomiting No fever No diarrhea No dizziness No shortness of breath Objective - Vital Signs/Intake and Output Vital Signs (last 24 hours): Temp Pulse Resp BP Pulse Ox 97.8 F 70 20 141/80 100 02/27/19 09:30 02/27/19 10:00 02/27/19 10:00 02/27/19 10:00 02/27/19 10:00 Intake and Output: 02/27/19 02/27/19 06:59 18:59 Intake Total 800 Balance 800 - Medications Medications: Current Medications Aspirin (Ecotrin) 81 mg PO DAILY [facility] Last Admin: 02/27/19 09:03 Dose: Not Given Enoxaparin Sodium (Lovenox) 40 mg SC DAILY [facility] Last Admin: 02/27/19 09:04 Dose: Not Given Gabapentin (Neurontin) 300 mg PO [facility] Last Admin: 02/26/19 22:20 Dose: 300 mg Piperacillin Sod/Tazobactam (Sod 3.375 gm/ Sodium Chloride) 100 mls @ 200 mls/hr IVPB Q8H [facility]; Protocol Last Admin: 02/27/19 13:11 Dose: 200 mls/hr Sodium Chloride (Sodium Chloride 0.9%) 1,000 mls @ 100 mls/hr IV .Q10H [facility] Last Admin: 02/27/19 10:04 Dose: Not Given Levothyroxine Sodium (Synthroid) 75 mcg PO DAILY@0630 [facility] Last Admin: 02/27/19 06:20 Dose: 75 mcg Nebivolol (Bystolic) 10 mg PO DAILY [facility] Last Admin: 02/27/19 09:05 Dose: Not Given Pantoprazole Sodium (Protonix Inj) 40 mg IVP DAILY [facility] Last Admin: 02/27/19 10:41 Dose: 40 mg Pneumococcal Polyvalent Vaccine (Pneumovax 23 Vaccine) 0.5 ml IM .ONCE ONE Stop: 03/01/19 10:01 Rosuvastatin Calcium (Crestor) 5 mg PO [facility] Last Admin: 02/26/19 22:20 Dose: 5 mg - Labs Labs: 02/27/19 07:28 02/27/19 07:28 - Constitutional Appears: Well - Head Exam Head Exam: ATRAUMATIC, NORMAL INSPECTION, NORMOCEPHALIC - Eye Exam Eye Exam: EOMI, Normal appearance, PERRL Pupil Exam: NORMAL ACCOMODATION, PERRL - ENT Exam ENT Exam: Mucous Membranes Moist, Normal Exam - Neck Exam Neck Exam: Full ROM, Normal Inspection. absent: Lymphadenopathy - Respiratory Exam Respiratory Exam: Decreased Breath Sounds - Cardiovascular Exam Cardiovascular Exam: REGULAR RHYTHM, +S1, +S2 - GI/Abdominal Exam GI & Abdominal Exam: Soft, Diminished Bowel Sounds - Rectal Exam Rectal Exam: Deferred - Neurological Exam Neurological Exam: Oriented x3 Assessment and Plan - Assessment and Plan (Free Text) Plan: vitals reviewed medications reviewed labs reviewed
--- NOTE | 2019-02-27 16:59 | CARD ---
APPROVED REPORT Date of service: 02/27/2019 EXAM: Two-dimensional and M-mode echocardiogram with Doppler and color Doppler. Other Information Quality : GoodRhythm : INDICATION medical clearance for surgery in AM 2D DIMENSIONS IVSd0.9 (0.7-1.1cm)LVDd4.1 (3.9-5.9cm) PWd0.9 (0.7-1.1cm)LA Dwdnaf06 (18-58mL) LVDs2.7 (2.5-4.0cm)FS (%) 35.5 % LVEF (%)65.4 (>50%)LVEF (Wahl's)63.24 % M-Mode DIMENSIONS Left Atrium (MM)3.25 (2.5-4.0cm)IVSd0.83 (0.7-1.1cm) Aortic Root3.65 (2.2-3.7cm)LVDd4.93 (4.0-5.6cm) Aortic Cusp Exc.2.06 (1.5-2.0cm)PWd0.95 (0.7-1.1cm) FS (%) 35 %LVDs3.18 (2.0-3.8cm) Mitral Valve MV E Dgrpjzln23.5cm/sMV A Hzlszoov59.2cm/sE/A ratio0.8 TDI Lateral E' Peak V10.16cm/sMedial E' Peak V7.19cm/sE/Lateral E'5.3 E/Medial E'7.4 Tricuspid Valve TR Peak Fdigagmd724ig/sTR Peak Gr.[id number] LEFT VENTRICLE The left ventricle is normal size. There is normal left ventricular wall thickness. The left ventricular function is normal. The left ventricular ejection fraction is within the normal range. There is normal LV segmental wall motion. Transmitral Doppler flow pattern is Grade I-abnormal relaxation pattern. RIGHT VENTRICLE The right ventricle is normal size. There is normal right ventricular wall thickness. The right ventricular systolic function is normal. ATRIA The left atrium size is normal. The right atrium size is normal. AORTIC VALVE The aortic valve is mildly thickened. No aortic regurgitation is present. There is no aortic valvular stenosis. MITRAL VALVE The mitral valve is mildly thickened. There is no mitral valve stenosis. Mitral regurgitation is trace. TRICUSPID VALVE The tricuspid valve is normal in structure. There is trace tricuspid regurgitation. PULMONIC VALVE The pulmonary valve is normal in structure. There is trace pulmonic valvular regurgitation. GREAT VESSELS The aortic root is normal in size. The IVC is normal in size and collapses >50% with inspiration. <Conclusion> There is normal left ventricular wall thickness. The left ventricular function is normal. The left ventricular ejection fraction is within the normal range. There is normal LV segmental wall motion. Transmitral Doppler flow pattern is Grade I-abnormal relaxation pattern. Mitral regurgitation is trace. There is trace tricuspid regurgitation.
[2019-02-27] MEDS: Brimonidine 0.2% Opth Sol (5ml) OU SCH (18:54)
[2019-02-27 19:06] LABS: IRON 86 ug/dL (37-170)
[2019-02-27 19:16] LABS: % IRON SATURATION 27 (20-55); TOTAL IRON BINDING CAPACITY 319 ug/dL (250-450)
--- NOTE | 2019-02-27 19:37 | CP.PCM.CON ---
History of Present Illness - History of Present Illness History of Present Illness: REASON FOR CONSULT : CKD .. EGFR 39 ML /M PT IS WELL KNOWN TO ME FROM OFFICE VISITS WITH H/O CKD HTN AND HYPOTHYROIDISM 68 year old female presents for evaluation of RUQ pain and swelling that started today at 11am and has not abated. The pt notes having similar symptoms in the past that have resolved on its own. Pt admits she has not had spicy food today or last night. For breakfast she had toast and cheese and a yogurt for lunch. Denies CP, SOB, fever, chills, nausea, vomiting, diarrhea, and any other associated symptoms. SHx: (-) abdominal surgery PMHx: (-) gastritis Past Patient History - Infectious Disease Hx of Infectious Diseases: None - Past Social History Smoking Status: Never Smoked - CARDIAC Hx Hypertension: Yes - PULMONARY Hx Respiratory Disorders: No - NEUROLOGICAL Hx Neurological Disorder: No - HEENT Hx HEENT Problems: No - RENAL Hx Chronic Kidney Disease: No - ENDOCRINE/METABOLIC Hx Hypothyroidism: Yes - HEMATOLOGICAL/ONCOLOGICAL Hx Blood Disorders: No - INTEGUMENTARY Hx Dermatological Problems: No - MUSCULOSKELETAL/RHEUMATOLOGICAL Hx Musculoskeletal Disorders: No - GASTROINTESTINAL Hx Gastrointestinal Disorders: No - GENITOURINARY/GYNECOLOGICAL Hx Genitourinary Disorders: No - PSYCHIATRIC Hx Substance Use: No - SURGICAL HISTORY Hx Surgeries: Yes Hx Section: Yes (X1) Hx Musculoskeletal Surgery: Yes (RIGHT SHOULDER) Other/Comment: Right knee surgery. - ANESTHESIA Hx Anesthesia: Yes Hx Anesthesia Reactions: No Hx Malignant Hyperthermia: No Meds Allergies/Adverse Reactions: Allergies Allergy/AdvReac Type Severity Reaction Status Date / Time No Known Allergies Allergy Verified 02/25/19 16:13 - Medications Medications: Current Medications Aspirin (Ecotrin) 81 mg PO DAILY [facility] Last Admin: 02/27/19 09:03 Dose: Not Given Brimonidine Tartrate (Alphagan 0.2% Opht) 1 ml OU BID [facility] Enoxaparin Sodium (Lovenox) 40 mg SC DAILY [facility] Last Admin: 02/27/19 09:04 Dose: Not Given Gabapentin (Neurontin) 300 mg PO HS [facility] Last Admin: 02/26/19 22:20 Dose: 300 mg Home Med (Patient's Own Drops) 1 drop OU HS [facility] Piperacillin Sod/Tazobactam (Sod 3.375 gm/ Sodium Chloride) 100 mls @ 200 mls/hr IVPB Q8H [facility]; Protocol Last Admin: 02/27/19 13:11 Dose: 200 mls/hr Sodium Chloride (Sodium Chloride 0.9%) 1,000 mls @ 100 mls/hr IV .Q10H [facility] Last Admin: 02/27/19 10:04 Dose: Not Given Levothyroxine Sodium (Synthroid) 75 mcg PO DAILY@0630 [facility] Last Admin: 02/27/19 06:20 Dose: 75 mcg Nebivolol (Bystolic) 10 mg PO DAILY [facility] Last Admin: 02/27/19 09:05 Dose: Not Given Pantoprazole Sodium (Protonix Inj) 40 mg IVP DAILY [facility] Last Admin: 02/27/19 10:41 Dose: 40 mg Pneumococcal Polyvalent Vaccine (Pneumovax 23 Vaccine) 0.5 ml IM .ONCE ONE Stop: 03/01/19 10:01 Rosuvastatin Calcium (Crestor) 5 mg PO [facility] Last Admin: 02/26/19 22:20 Dose: 5 mg Results - Vital Signs Recent Vital Signs: Last Vital Signs Temp 98.1 F 02/27/19 16:00 Pulse 74 02/27/19 16:00 Resp 20 02/27/19 16:00 BP 145/81 02/27/19 16:00 Pulse Ox 96 02/27/19 16:00 - Labs Result Diagrams: 02/27/19 07:28 02/27/19 07:28 Labs: Laboratory Results - last 24 hr 02/27/19 02/27/19 02/27/19 07:28 07:28 07:28 WBC 4.7 L RBC 4.25 Hgb 13.2 Hct 39.6 MCV 93.2 MCH 31.2 H MCHC 33.5 RDW 13.9 Plt Count 210 MPV 10.2 Neut % (Auto) 49.2 L Lymph % (Auto) 31.8 Barry % (Auto) 12.9 H Eos % (Auto) 5.2 H Baso % (Auto) 0.9 Neut # (Auto) 2.3 Lymph # (Auto) 1.5 [place] # (Auto) 0.6 Eos # (Auto) 0.2 Baso # (Auto) 0.0 Sodium 140 Potassium 4.3 Chloride 110 H Carbon Dioxide 25 Anion Gap 10 BUN 16 Creatinine 1.6 H Est GFR ( Amer) 39 Est GFR (Non-Af Amer) 32 Random Glucose 97 Calcium 9.1 Iron TIBC % Saturation Transferrin Ferritin 120.0 Total Bilirubin 1.1 AST 410 H D ALT 378 H D Alkaline Phosphatase 123 Total Protein 6.8 Albumin 4.1 Globulin 2.7 Albumin/Globulin Ratio 1.5 IgG Blood Type A POSITIVE Antibody Screen Negative 02/27/19 02/27/19 10:02 17:16 WBC RBC Hgb Hct MCV MCH MCHC RDW Plt Count MPV Neut % (Auto) Lymph % (Auto) [place] % (Auto) Eos % (Auto) Baso % (Auto) Neut # (Auto) Lymph # (Auto) [place] # (Auto) Eos # (Auto) Baso # (Auto) Sodium Potassium Chloride Carbon Dioxide Anion Gap BUN Creatinine Est GFR ( Amer) Est GFR (Non-Af Amer) Random Glucose Calcium Iron 86 TIBC 319 % Saturation 27 Transferrin 222.73 Ferritin Total Bilirubin AST ALT Alkaline Phosphatase Total Protein Albumin Globulin Albumin/Globulin Ratio IgG 1040.3 Blood Type Antibody Screen Assessment & Plan - Assessment and Plan (Free Text) Assessment: CKD STAGE 3 .. EGFR 39 ML/M PT IS AT BASELINE MMP PRESENTED WITH ACUTE CHOLYCYSTITIS P : C/O CURRENT MEDS C/O CURRENT CARE FOR LAP ASAD IN AM - Date & Time Date: 02/27/19 Time: 15:00
[2019-02-27] MEDS: TRAVATAN Z 0.004% OPHTHALMIC SOLN OU SCH (21:59)
[2019-02-28] MEDS: Piperacillin/Tazobact 3.375 GM in Sodium Chloride 100 ML IVPB SCH (04:24)
[2019-02-28] MEDS: Sodium Chloride 0.9% 1,000 ML IV SCH ×2 (05:26→16:08)
[2019-02-28] MEDS: Levothyroxine 75 MCG TAB PO SCH (05:29)
[2019-02-28 06:28] LABS: BASO # 0.1 K/uL (0.0-0.2); BASO % 0.7 % (0.0-2.0); EOS # 0.4 K/uL (0.0-0.7); EOS % 5.9 % (0.0-4.0); HEMOGLOBIN 12.4 g/dL (11.0-16.0); LYMPH # 2.2 K/uL (1.0-4.3); LYMPH % 31.9 % (20.0-40.0); MEAN CORPUSCULAR HEMOGLOBIN 30.6 pg (27.0-31.0); MEAN CORPUSCULAR HGB CONC 33.2 g/dL (33.0-37.0); MEAN PLATELET VOLUME 10.2 fL (7.2-11.7); MONO # 0.9 K/uL (0.0-0.8); MONO % 12.6 % (0.0-10.0); NEUT # 3.4 K/uL (1.8-7.0); NEUT % 48.9 % (50.0-75.0); RBC 4.04 Mil/uL (3.80-5.20); RED CELL DISTRIBUTION WIDTH 14.2 % (11.5-14.5); WHITE BLOOD COUNT 6.9 K/uL (4.8-10.8)
[2019-02-28 07:31] LABS: ALB/GLOB RATIO 1.3 (1.0-2.1); ALBUMIN 3.6 g/dL (3.5-5.0)
--- NOTE | 2019-02-28 09:11 | CP.PCM.PN ---
<Latesha Brewer - Last Filed: 02/28/19 09:12> Subjective - Date & Time of Evaluation Date of Evaluation: 02/28/19 Time of Evaluation: 07:12 - Subjective Subjective: General surgery progress note for Dr. Hamilton Patient feeling well this morning. no acute events overnight per Nursing. tolerating diet. Denies f/c, n/v Objective - Vital Signs/Intake and Output Vital Signs (last 24 hours): Temp Pulse Resp BP Pulse Ox 98.4 F 61 20 131/85 95 02/28/19 08:14 02/28/19 08:14 02/28/19 08:14 02/28/19 08:14 02/28/19 08:14 Intake and Output: 02/28/19 02/28/19 06:59 18:59 Intake Total 800 Balance 800 - Medications Medications: Current Medications Aspirin (Ecotrin) 81 mg PO DAILY [facility] Last Admin: 02/27/19 09:03 Dose: Not Given Brimonidine Tartrate (Alphagan 0.2% Opht) 1 ml OU BID [facility] Last Admin: 02/27/19 18:54 Dose: 1 drop Enoxaparin Sodium (Lovenox) 40 mg SC DAILY [facility] Last Admin: 02/27/19 09:04 Dose: Not Given Gabapentin (Neurontin) 300 mg PO HS [facility] Last Admin: 02/27/19 21:58 Dose: 300 mg Home Med (Patient's Own Drops) 1 drop OU HS [facility] Last Admin: 02/27/19 21:59 Dose: 1 drop Piperacillin Sod/Tazobactam (Sod 3.375 gm/ Sodium Chloride) 100 mls @ 200 mls/hr IVPB Q8H [facility]; Protocol Last Admin: 02/28/19 04:24 Dose: 200 mls/hr Sodium Chloride (Sodium Chloride 0.9%) 1,000 mls @ 100 mls/hr IV .Q10H [facility] Last Admin: 02/28/19 05:26 Dose: 100 mls/hr Levothyroxine Sodium (Synthroid) 75 mcg PO DAILY@0630 [facility] Last Admin: 02/28/19 05:29 Dose: 75 mcg Nebivolol (Bystolic) 10 mg PO DAILY [facility] Last Admin: 02/27/19 09:05 Dose: Not Given Pantoprazole Sodium (Protonix Inj) 40 mg IVP DAILY [facility] Last Admin: 02/27/19 10:41 Dose: 40 mg Pneumococcal Polyvalent Vaccine (Pneumovax 23 Vaccine) 0.5 ml IM .ONCE ONE Stop: 03/01/19 10:01 Rosuvastatin Calcium (Crestor) 5 mg PO HS [facility] Last Admin: 02/26/19 22:20 Dose: 5 mg - Labs Labs: 02/28/19 06:19 02/28/19 06:19 - Constitutional Appears: Well, Non-toxic, No Acute Distress - Head Exam Head Exam: ATRAUMATIC, NORMOCEPHALIC - Eye Exam Eye Exam: EOMI - ENT Exam ENT Exam: Mucous Membranes Moist - Respiratory Exam Respiratory Exam: NORMAL BREATHING PATTERN - Cardiovascular Exam Cardiovascular Exam: REGULAR RHYTHM - GI/Abdominal Exam GI & Abdominal Exam: Soft, Tenderness (mild RUQ). absent: Guarding, Rebound - Extremities Exam Extremities Exam: absent: Calf Tenderness, Pedal Edema - Neurological Exam Neurological Exam: Alert, Awake, Oriented x3 - Psychiatric Exam Psychiatric exam: Normal Affect, Normal Mood - Skin Skin Exam: Dry, Intact, Normal Color, Warm Assessment and Plan - Assessment and Plan (Free Text) Assessment: 68 yr old female with symptomatic Cholelithiasis Plan: - NPO after midnight - plan for OR 03/01 - anti-emetics and pain control PRN - continue to encourage ambulation and OOB - further recs per Dr. Joy Brewer, PGY 1 <Pasquale Hamilton - Last Filed: 03/01/19 17:29> Objective - Vital Signs/Intake and Output Vital Signs (last 24 hours): Temp Pulse Resp BP Pulse Ox 97.9 F 66 20 122/75 93 L 03/01/19 11:10 03/01/19 11:10 03/01/19 11:10 03/01/19 11:10 03/01/19 11:10 Intake and Output: 03/01/19 03/01/19 06:59 18:59 Intake Total 500 1565 Balance 500 1565 - Medications Medications: Current Medications Aspirin (Ecotrin) 81 mg PO DAILY [facility] Last Admin: 03/01/19 10:52 Dose: Not Given Brimonidine Tartrate (Alphagan 0.2% Opht) 1 ml OU BID [facility] Last Admin: 03/01/19 10:52 Dose: Not Given Enoxaparin Sodium (Lovenox) 40 mg SC DAILY [facility] Last Admin: 02/28/19 09:54 Dose: Not Given Gabapentin (Neurontin) 300 mg PO HS [facility] Last Admin: 02/28/19 21:04 Dose: 300 mg Home Med (Patient's Own Drops) 1 drop OU HS [facility] Last Admin: 02/28/19 21:08 Dose: 1 drop Piperacillin Sod/Tazobactam (Sod 2.25 gm/ Sodium Chloride) 100 mls @ 200 mls/hr IVPB Q8H [facility]; Protocol Last Admin: 03/01/19 13:40 Dose: 200 mls/hr Levothyroxine Sodium (Synthroid) 75 mcg PO DAILY@0630 [facility] Last Admin: 03/01/19 05:30 Dose: Not Given Nebivolol (Bystolic) 10 mg PO DAILY [facility] Last Admin: 03/01/19 10:52 Dose: Not Given Pantoprazole Sodium (Protonix Inj) 40 mg IVP DAILY [facility] Last Admin: 03/01/19 10:52 Dose: Not Given Pneumococcal Polyvalent Vaccine (Pneumovax 23 Vaccine) 0.5 ml IM .ONCE ONE Stop: 03/02/19 10:01 Rosuvastatin Calcium (Crestor) 5 mg PO HS [facility] Last Admin: 02/26/19 22:20 Dose: 5 mg Tobramycin/Dexamethasone (Tobradex Opht Susp) 0 ml OU Q4 [facility] Stop: 03/02/19 14:23 - Labs Labs: 03/01/19 15:04 03/01/19 15:04 PT 11.7 SECONDS (9.7-12.2) 03/01/19 15:04 INR 1.1 03/01/19 15:04 APTT 31 SECONDS (21-34) 03/01/19 15:04 Attending/Attestation - Attestation I have personally seen and examined this patient.: Yes I have fully participated in the care of the patient.: Yes I have reviewed all pertinent clinical information, including history, physical exam and plan: Yes Notes (Text): Pt was seen and examined at bedside Agree with above note and assessment As per GI team, Pt is cleared for Cholecystectomy OR for Lap Cholecystectomy tomorrow NPO, IVF Consent Plan d.w pt in detail Risk and benefit explained in detail.
--- NOTE | 2019-02-28 09:33 | CP.PCM.CON ---
Past Patient History - Infectious Disease Hx of Infectious Diseases: None - Past Medical History & Family History Past Medical History?: Yes - Past Social History Smoking Status: Never Smoked - CARDIAC Hx Hypertension: Yes - PULMONARY Hx Respiratory Disorders: No - NEUROLOGICAL Hx Neurological Disorder: No - HEENT Hx HEENT Problems: No - RENAL Hx Chronic Kidney Disease: No - ENDOCRINE/METABOLIC Hx Hypothyroidism: Yes - HEMATOLOGICAL/ONCOLOGICAL Hx Blood Disorders: No - INTEGUMENTARY Hx Dermatological Problems: No - MUSCULOSKELETAL/RHEUMATOLOGICAL Hx Musculoskeletal Disorders: No Hx Falls: No - GASTROINTESTINAL Hx Gastrointestinal Disorders: No - GENITOURINARY/GYNECOLOGICAL Hx Genitourinary Disorders: No - PSYCHIATRIC Hx Substance Use: No - SURGICAL HISTORY Hx Surgeries: Yes Hx Section: Yes (X1) Hx Musculoskeletal Surgery: Yes (RIGHT SHOULDER) Other/Comment: Right knee surgery. - ANESTHESIA Hx Anesthesia: Yes Hx Anesthesia Reactions: No Hx Malignant Hyperthermia: No Meds Allergies/Adverse Reactions: Allergies Allergy/AdvReac Type Severity Reaction Status Date / Time No Known Allergies Allergy Verified 02/25/19 16:13 - Medications Medications: Current Medications Aspirin (Ecotrin) 81 mg PO DAILY [facility] Last Admin: 02/27/19 09:03 Dose: Not Given Brimonidine Tartrate (Alphagan 0.2% Opht) 1 ml OU BID [facility] Last Admin: 02/27/19 18:54 Dose: 1 drop Enoxaparin Sodium (Lovenox) 40 mg SC DAILY [facility] Last Admin: 02/27/19 09:04 Dose: Not Given Gabapentin (Neurontin) 300 mg PO HS [facility] Last Admin: 02/27/19 21:58 Dose: 300 mg Home Med (Patient's Own Drops) 1 drop OU [facility] Last Admin: 02/27/19 21:59 Dose: 1 drop Piperacillin Sod/Tazobactam (Sod 3.375 gm/ Sodium Chloride) 100 mls @ 200 mls/hr IVPB Q8H [facility]; Protocol Last Admin: 02/28/19 04:24 Dose: 200 mls/hr Sodium Chloride (Sodium Chloride 0.9%) 1,000 mls @ 100 mls/hr IV .Q10H [facility] Last Admin: 02/28/19 05:26 Dose: 100 mls/hr Levothyroxine Sodium (Synthroid) 75 mcg PO DAILY@0630 [facility] Last Admin: 02/28/19 05:29 Dose: 75 mcg Nebivolol (Bystolic) 10 mg PO DAILY [facility] Last Admin: 02/27/19 09:05 Dose: Not Given Pantoprazole Sodium (Protonix Inj) 40 mg IVP DAILY [facility] Last Admin: 02/27/19 10:41 Dose: 40 mg Pneumococcal Polyvalent Vaccine (Pneumovax 23 Vaccine) 0.5 ml IM .ONCE ONE Stop: 03/01/19 10:01 Rosuvastatin Calcium (Crestor) 5 mg PO HS [facility] Last Admin: 02/26/19 22:20 Dose: 5 mg Results - Vital Signs Recent Vital Signs: Last Vital Signs Temp 98.4 F 02/28/19 08:14 Pulse 61 02/28/19 08:14 Resp 20 02/28/19 08:14 BP 131/85 02/28/19 08:14 Pulse Ox 95 02/28/19 08:14 - Labs Result Diagrams: 02/28/19 06:19 02/28/19 06:19 Labs: Laboratory Results - last 24 hr 02/27/19 02/27/19 02/27/19 07:28 10:02 17:16 WBC RBC Hgb Hct MCV MCH MCHC RDW Plt Count MPV Neut % (Auto) Lymph % (Auto) [place] % (Auto) Eos % (Auto) Baso % (Auto) Neut # (Auto) Lymph # (Auto) [place] # (Auto) Eos # (Auto) Baso # (Auto) Sodium 140 Potassium 4.3 Chloride 110 H Carbon Dioxide 25 Anion Gap 10 BUN 16 Creatinine 1.6 H Est GFR ( Amer) 39 Est GFR (Non-Af Amer) 32 Random Glucose 97 Calcium 9.1 Iron 86 TIBC 319 % Saturation 27 Transferrin 222.73 Ferritin 120.0 Total Bilirubin 1.1 AST 410 H D ALT 378 H D Alkaline Phosphatase 123 Total Protein 6.8 Albumin 4.1 Globulin 2.7 Albumin/Globulin Ratio 1.5 IgG 1040.3 02/28/19 02/28/19 06:19 06:19 WBC 6.9 RBC 4.04 Hgb 12.4 Hct 37.2 MCV 92.0 MCH 30.6 MCHC 33.2 RDW 14.2 Plt Count 184 MPV 10.2 Neut % (Auto) 48.9 L Lymph % (Auto) 31.9 [place] % (Auto) 12.6 H Eos % (Auto) 5.9 H Baso % (Auto) 0.7 Neut # (Auto) 3.4 Lymph # (Auto) 2.2 [place] # (Auto) 0.9 H Eos # (Auto) 0.4 Baso # (Auto) 0.1 Sodium 140 Potassium 4.2 Chloride 111 H Carbon Dioxide 23 Anion Gap 10 BUN 21 H Creatinine 1.6 H Est GFR ( Amer) 39 Est GFR (Non-Af Amer) 32 Random Glucose 97 Calcium 9.0 Iron TIBC % Saturation Transferrin Ferritin Total Bilirubin 0.7 AST 109 H D ALT 219 H D Alkaline Phosphatase 92 Total Protein 6.3 Albumin 3.6 Globulin 2.7 Albumin/Globulin Ratio 1.3 IgG - Imaging and Cardiology Chest x-ray Status: Image reviewed by me Additional comment: No infiltrates or effusions 2D echo Additional comment: Normal LV systolic function, normal filling pressures Assessment & Plan - Assessment and Plan (Free Text) Assessment: 68 year old female with acute cholecystitis scheduled for lap cholecystectomy. This is an urgent procedure so PATIENT IS ACCEPTABLE RISK, NO FURTHER CARDIAC WORK UP IS REQUIRED. HTN is chronic and stable on bystolic Hyperlipidemia is chronic and stable on crestor
[2019-02-28] MEDS: Brimonidine 0.2% Opth Sol (5ml) OU SCH ×2 (09:54→17:08)
[2019-02-28] MEDS: Enoxaparin 40 mg Syringe SC SCH (09:54)
[2019-02-28] MEDS: Piperacillin/Tazobact 2.25 GM in Sodium Chloride 100 ML IVPB SCH ×2 (12:00→21:04)
--- NOTE | 2019-02-28 18:32 | CP.PCM.PN ---
Subjective - Date & Time of Evaluation Date of Evaluation: 02/28/19 Time of Evaluation: 18:12 - Subjective Subjective: PGY3 Note for Dr Chavez's service Pt seen and examined at bedside. No acute events overnight per nursing. Patient found resting comfortably this AM. Tolerating diet. Passing gas, BM. Denies n/v/f/c. Objective - Vital Signs/Intake and Output Vital Signs (last 24 hours): Temp Pulse Resp BP Pulse Ox 97.5 F L 68 18 126/76 96 02/28/19 16:00 02/28/19 16:00 02/28/19 16:00 02/28/19 16:00 02/28/19 16:00 Intake and Output: 02/28/19 02/28/19 06:59 18:59 Intake Total 800 Balance 800 - Medications Medications: Current Medications Aspirin (Ecotrin) 81 mg PO DAILY [facility] Last Admin: 02/28/19 09:53 Dose: 81 mg Brimonidine Tartrate (Alphagan 0.2% Opht) 1 ml OU BID [facility] Last Admin: 02/28/19 17:08 Dose: 1 drop Enoxaparin Sodium (Lovenox) 40 mg SC DAILY [facility] Last Admin: 02/28/19 09:54 Dose: Not Given Gabapentin (Neurontin) 300 mg PO HS [facility] Last Admin: 02/27/19 21:58 Dose: 300 mg Home Med (Patient's Own Drops) 1 drop OU HS [facility] Last Admin: 02/27/19 21:59 Dose: 1 drop Sodium Chloride (Sodium Chloride 0.9%) 1,000 mls @ 100 mls/hr IV .Q10H [facility] Last Admin: 02/28/19 16:08 Dose: Not Given Piperacillin Sod/Tazobactam (Sod 2.25 gm/ Sodium Chloride) 100 mls @ 200 mls/hr IVPB Q8H [facility]; Protocol Last Admin: 02/28/19 12:00 Dose: 200 mls/hr Levothyroxine Sodium (Synthroid) 75 mcg PO DAILY@0630 [facility] Last Admin: 02/28/19 05:29 Dose: 75 mcg Nebivolol (Bystolic) 10 mg PO DAILY [facility] Last Admin: 02/28/19 09:53 Dose: 10 mg Pantoprazole Sodium (Protonix Inj) 40 mg IVP DAILY [facility] Last Admin: 02/28/19 09:53 Dose: 40 mg Pneumococcal Polyvalent Vaccine (Pneumovax 23 Vaccine) 0.5 ml IM .ONCE ONE Stop: 03/01/19 10:01 Rosuvastatin Calcium (Crestor) 5 mg PO HS [facility] Last Admin: 02/26/19 22:20 Dose: 5 mg - Labs Labs: 02/28/19 06:19 02/28/19 06:19 - Constitutional Appears: Non-toxic, No Acute Distress - Head Exam Head Exam: ATRAUMATIC, NORMAL INSPECTION - Eye Exam Eye Exam: EOMI, PERRL Pupil Exam: NORMAL ACCOMODATION, PERRL - ENT Exam ENT Exam: Mucous Membranes Moist, Normal Exam - Neck Exam Neck Exam: Normal Inspection. absent: Tenderness - Respiratory Exam Respiratory Exam: Clear to Ausculation Bilateral, NORMAL BREATHING PATTERN - Cardiovascular Exam Cardiovascular Exam: REGULAR RHYTHM, +S1, +S2 - GI/Abdominal Exam GI & Abdominal Exam: Soft, Tenderness (RUQ/epigastric (mild)), Normal Bowel Sounds - Extremities Exam Extremities Exam: Full ROM, Normal Capillary Refill - Back Exam Back Exam: absent: CVA tenderness (L), CVA tenderness (R) - Neurological Exam Neurological Exam: Alert, Awake, Oriented x3 - Psychiatric Exam Psychiatric exam: Normal Affect, Normal Mood - Skin Skin Exam: Normal Color, Warm Assessment and Plan - Assessment and Plan (Free Text) Plan: Cholecystitis Admit to med/surg LFTs downtrending CT A/P (02/26/19): Gallstone and diffuse GB wall thickening. No definite evidence of acute dedrick. US recommended. US (02/26/19): possible GB adenomyomatosis. Mildly echogenic liver suggestive of hepatic steatosis. Endoscopy (02/26/19): Reflux esophagitis. Gastritis. Hiatal hernia. MRCP without filling defect GI aws consultant, Dr. Lao - Recommend EGD prior to surgery - f/u mitochondrial abs publicity consultant, Dr. Hamilton -Plan for lap dedrick tomorrow Cardio aws consultant, Dr. Rudd ECHO (02/27/19): LV fxn normal; Grade I abnml relaxation pattern. - PATIENT IS ACCEPTABLE RISK, NO FURTHER CARDIAC WORK UP IS REQUIRED. Elevated LFTs As above; Hepatitis panel negative HTN Bystolic 10mg PO DAily Hypothyroidism TSH 2.03 Synthroid 75mcg PO daily Hyperlipidemia Crestor 5mg PO HS CKD, stage III Dr. Anderson, Nephro aws consultant GFR of 39, Cr 1.6 is baseline PPX Lovenox 40mg SC Daily (HOLD; pre-op) ASA 81mg PO daily Protonix 40mg IV Daily SCDs Dispostion: Patient for OR tomorrow AM. Cleared via cardiology. Phill To PGY3 d/w Dr. Chavez
--- NOTE | 2019-02-28 20:55 | CP.PCM.PN ---
Subjective - Date & Time of Evaluation Date of Evaluation: 02/28/19 Time of Evaluation: 10:00 - Subjective Subjective: SEEN ON RENAL F/U SEEN IN BED RESTING FEELS MUCH BETTER FOR LAP ASAD IN AM RENAL FUNCTION STABLE Objective - Vital Signs/Intake and Output Vital Signs (last 24 hours): Temp Pulse Resp BP Pulse Ox 97.5 F L 68 18 126/76 96 02/28/19 16:00 02/28/19 16:00 02/28/19 16:00 02/28/19 16:00 02/28/19 16:00 Intake and Output: 02/28/19 03/01/19 18:59 06:59 Intake Total 800 Balance 800 - Medications Medications: Current Medications Aspirin (Ecotrin) 81 mg PO DAILY [facility] Last Admin: 02/28/19 09:53 Dose: 81 mg Brimonidine Tartrate (Alphagan 0.2% Opht) 1 ml OU BID [facility] Last Admin: 02/28/19 17:08 Dose: 1 drop Enoxaparin Sodium (Lovenox) 40 mg SC DAILY [facility] Last Admin: 02/28/19 09:54 Dose: Not Given Gabapentin (Neurontin) 300 mg PO HS [facility] Last Admin: 02/27/19 21:58 Dose: 300 mg Home Med (Patient's Own Drops) 1 drop OU HS [facility] Last Admin: 02/27/19 21:59 Dose: 1 drop Sodium Chloride (Sodium Chloride 0.9%) 1,000 mls @ 100 mls/hr IV .Q10H [facility] Last Admin: 02/28/19 16:08 Dose: Not Given Piperacillin Sod/Tazobactam (Sod 2.25 gm/ Sodium Chloride) 100 mls @ 200 mls/hr IVPB Q8H [facility]; Protocol Last Admin: 02/28/19 12:00 Dose: 200 mls/hr Levothyroxine Sodium (Synthroid) 75 mcg PO DAILY@0630 [facility] Last Admin: 02/28/19 05:29 Dose: 75 mcg Nebivolol (Bystolic) 10 mg PO DAILY [facility] Last Admin: 02/28/19 09:53 Dose: 10 mg Pantoprazole Sodium (Protonix Inj) 40 mg IVP DAILY [facility] Last Admin: 02/28/19 09:53 Dose: 40 mg Pneumococcal Polyvalent Vaccine (Pneumovax 23 Vaccine) 0.5 ml IM .ONCE ONE Stop: 03/01/19 10:01 Rosuvastatin Calcium (Crestor) 5 mg PO HS [facility] Last Admin: 02/26/19 22:20 Dose: 5 mg - Labs Labs: 02/28/19 06:19 02/28/19 06:19 Assessment and Plan - Assessment and Plan (Free Text) Assessment: CKD STAGE 3 .. STABLE MMP ACUTE CHOLYCYSTITIS P: C/O PRESENT CARE C/O CURRENT MANAGEMENT LAP ASAD IN AM
[2019-02-28] MEDS: TRAVATAN Z 0.004% OPHTHALMIC SOLN OU SCH (21:08)
[2019-03-01] MEDS: Piperacillin/Tazobact 2.25 GM in Sodium Chloride 100 ML IVPB SCH ×3 (05:30→19:40)
[2019-03-01] MEDS: Sodium Chloride 0.9% 1,000 ML IV SCH ×3 (05:30→13:40)
[2019-03-01] MEDS: Levothyroxine 75 MCG TAB PO SCH (05:30)
[2019-03-01] MEDS ORDERED: Propofol 10 mg/ml Inj (20 ML) ONE (07:34)
[2019-03-01] MEDS ORDERED: Midazolam 2 MG/2 ML VIAL ONE (07:34)
[2019-03-01] MEDS: Bupivacaine 0.25% 20 ML INJ IJ ONE ×2 (08:20→08:23)
[2019-03-01] MEDS: Bupivacaine Liposomal Inj 20 ml INFIL ONE ×2 (08:20→09:07)
[2019-03-01] MEDS: Lidocaine/Epinephrine 1% 1:100000 10 ML IJ ONE ×2 (08:20→08:23)
[2019-03-01] MEDS ORDERED: ceFAZolin 1 gm in NS 1 GM/100 ML BAG IVPB ONE (08:21)
[2019-03-01] MEDS: Sodium Chloride 0.9% 40 ML IV ONE ×2 (08:23→09:07)
[2019-03-01] MEDS ORDERED: Neostigmine 1:1000 (1 mg/ml) Inj ONE (09:16)
[2019-03-01] MEDS ORDERED: HYDROmorphone 0.5 mg/0.5 ml ISec IVP PRN (09:39)
--- NOTE | 2019-03-01 09:47 | PCM.SURG1 ---
Surgeon's Initial Post Op Note - Surgeon's Notes Surgeon: Rosangela Hamilton MD Inspector Water Pollution Control: YADIRA Colin Type of Anesthesia: General Endo Pre-Operative Diagnosis: Cholelithiasis and Chronic Cholecystitis. Abdominal Pain Operative Findings: Cholelithiasis and Chronic Cholecystitis Post-Operative Diagnosis: Cholelithiasis and Chronic Cholecystitis. Abdominal Pain Operation Performed: Robotic Cholecystectomy. Lap B/L TAP block placement Specimen/Specimens Removed: GallBladder Estimated Blood Loss: EBL {In ML}: 10 Blood Products Given: N/A Drains Used: No Drains Post-Op Condition: Good Date of Surgery/Procedure: 03/01/19 Time of Surgery/Procedure: 09:47
[2019-03-01] MEDS ORDERED: Pneumococcal 23-Valent Vaccine IM ONE ×2 (10:00→16:00)
[2019-03-01] MEDS: Brimonidine 0.2% Opth Sol (5ml) OU SCH ×2 (10:52→21:41)
--- NOTE | 2019-03-01 10:53 | CP.PCM.PN ---
<Darwin Young - Last Filed: 03/01/19 10:48> Subjective - Date & Time of Evaluation Date of Evaluation: 03/01/19 Time of Evaluation: 10:48 - Subjective Subjective: Patient is doing well this AM. She is scheduled for lap dedrick. No complaints, abdominal pain, fever. 5pt ROS completed and negative except for above. Objective - Vital Signs/Intake and Output Vital Signs (last 24 hours): Temp Pulse Resp BP Pulse Ox 97.7 F 64 16 163/89 H 100 03/01/19 09:37 03/01/19 10:15 03/01/19 10:15 03/01/19 10:15 03/01/19 10:15 Intake and Output: 03/01/19 03/01/19 06:59 18:59 Intake Total 500 740 Balance 500 740 - Medications Medications: Current Medications Aspirin (Ecotrin) 81 mg PO DAILY [facility] Last Admin: 02/28/19 09:53 Dose: 81 mg Brimonidine Tartrate (Alphagan 0.2% Opht) 1 ml OU BID [facility] Last Admin: 02/28/19 17:08 Dose: 1 drop Enoxaparin Sodium (Lovenox) 40 mg SC DAILY [facility] Last Admin: 02/28/19 09:54 Dose: Not Given Gabapentin (Neurontin) 300 mg PO HS [facility] Last Admin: 02/28/19 21:04 Dose: 300 mg Home Med (Patient's Own Drops) 1 drop OU HS [facility] Last Admin: 02/28/19 21:08 Dose: 1 drop Hydromorphone HCl (Dilaudid) 0.5 mg IVP Q5M PRN PRN Reason: Pain, severe (8-10) Stop: 03/01/19 11:39 Sodium Chloride (Sodium Chloride 0.9%) 1,000 mls @ 100 mls/hr IV .Q10H [facility] Last Admin: 03/01/19 05:30 Dose: Not Given Piperacillin Sod/Tazobactam (Sod 2.25 gm/ Sodium Chloride) 100 mls @ 200 mls/hr IVPB Q8H [facility]; Protocol Last Admin: 03/01/19 05:30 Dose: 200 mls/hr Levothyroxine Sodium (Synthroid) 75 mcg PO DAILY@0630 [facility] Last Admin: 04/10/19 05:30 Dose: Not Given Nebivolol (Bystolic) 10 mg PO DAILY [facility] Last Admin: 02/28/19 09:53 Dose: 10 mg Pantoprazole Sodium (Protonix Inj) 40 mg IVP DAILY [facility] Last Admin: 02/28/19 09:53 Dose: 40 mg Rosuvastatin Calcium (Crestor) 5 mg PO HS [facility] Last Admin: 02/26/19 22:20 Dose: 5 mg - Labs Labs: 02/28/19 06:19 02/28/19 06:19 - Constitutional Appears: Non-toxic, No Acute Distress - Eye Exam Eye Exam: EOMI, Normal appearance - ENT Exam ENT Exam: Mucous Membranes Moist, Normal Exam - Cardiovascular Exam Cardiovascular Exam: REGULAR RHYTHM, +S1, +S2 - GI/Abdominal Exam GI & Abdominal Exam: Soft, Normal Bowel Sounds. absent: Tenderness - Extremities Exam Extremities Exam: Normal Inspection. absent: Pedal Edema - Neurological Exam Neurological Exam: Alert, Awake, Oriented x3 - Psychiatric Exam Psychiatric exam: Normal Affect, Normal Mood - Skin Skin Exam: Normal Color, Warm Assessment and Plan - Assessment and Plan (Free Text) Assessment: #Acute abdominal pain - suspected PUD vs symptomatic gallstones #Elevated Liver Enzymes #Hypothyroid #HTN/HLD PLAN: -CT reviewed, showing gallstones, retained stool in colon. No obvious acute cholecystitis. -EGD 02/27/19 shows inflammation of the esophagus, stomach and duodenum. Pathology PENDING. -Obtain hepatitis panel, TSH -U/S abdomen shows possible adenomyomatosis, fatty liver. -Continue PPI -Lap dedrick today -Monitor liver tests, trending down. -Hepatitis panel negative, Antibody negative Case discussed with Dr. Lao, see attestation <Ronald Lao Y - Last Filed: 03/01/19 16:28> Objective - Vital Signs/Intake and Output Vital Signs (last 24 hours): Temp Pulse Resp BP Pulse Ox 97.9 F 66 20 122/75 93 L 03/01/19 11:10 03/01/19 11:10 03/01/19 11:10 03/01/19 11:10 03/01/19 11:10 Intake and Output: 03/01/19 03/01/19 06:59 18:59 Intake Total 500 1565 Balance 500 1565 - Medications Medications: Current Medications Aspirin (Ecotrin) 81 mg PO DAILY [facility] Last Admin: 03/01/19 10:52 Dose: Not Given Brimonidine Tartrate (Alphagan 0.2% Opht) 1 ml OU BID [facility] Last Admin: 03/01/19 10:52 Dose: Not Given Enoxaparin Sodium (Lovenox) 40 mg SC DAILY [facility] Last Admin: 02/28/19 09:54 Dose: Not Given Gabapentin (Neurontin) 300 mg PO HS [facility] Last Admin: 02/28/19 21:04 Dose: 300 mg Home Med (Patient's Own Drops) 1 drop OU HS [facility] Last Admin: 02/28/19 21:08 Dose: 1 drop Piperacillin Sod/Tazobactam (Sod 2.25 gm/ Sodium Chloride) 100 mls @ 200 mls/hr IVPB Q8H [facility]; Protocol Last Admin: 03/01/19 13:40 Dose: 200 mls/hr Levothyroxine Sodium (Synthroid) 75 mcg PO DAILY@0630 [facility] Last Admin: 03/01/19 05:30 Dose: Not Given Nebivolol (Bystolic) 10 mg PO DAILY [facility] Last Admin: 03/01/19 10:52 Dose: Not Given Pantoprazole Sodium (Protonix Inj) 40 mg IVP DAILY [facility] Last Admin: 03/01/19 10:52 Dose: Not Given Rosuvastatin Calcium (Crestor) 5 mg PO HS [facility] Last Admin: 02/26/19 22:20 Dose: 5 mg Tobramycin/Dexamethasone (Tobradex Opht Susp) 0 ml OU Q4 [facility] Stop: 03/02/19 14:23 - Labs Labs: 03/01/19 15:04 03/01/19 15:04 PT 11.7 SECONDS (9.7-12.2) 03/01/19 15:04 INR 1.1 03/01/19 15:04 APTT 31 SECONDS (21-34) 03/01/19 15:04 Attending/Attestation - Attestation I have personally seen and examined this patient.: Yes I have fully participated in the care of the patient.: Yes I have reviewed all pertinent clinical information, including history, physical exam and plan: Yes Notes (Text): 03/01/19 16:25 I have seen and examined patient with GI fellow. No acute events overnight, she denies nausea, vomiting, fever/chills. Patient scheduled for cholecystectomy today. Review of vitals from today shows elevated BP. Abdominal pain Cholelithiasis Transaminitis Hypothyroidism - NPO - LFTs trending down, continue to monitor - Follow up autoimmune serologies - Follow up surgical recommendations for cholecystectomy - No further planned GI intervention at this time, will sign off case. Please reconsult as necessary, thank you.
[2019-03-01 12:54] VITALS: RESP 20
--- NOTE | 2019-03-01 14:05 | CP.PCM.PN ---
Subjective - Date & Time of Evaluation Date of Evaluation: 03/01/19 Time of Evaluation: 14:02 - Subjective Subjective: PGY3 progress note for Dr. Hernandez Chavez Pt seen and examined at bedside. Pt is s/p cholecystectomy POD #0. Patient tolerated surgery well. After procedure, pt complaining of bilateral cornea irritation. She states that she feels like there is sand in her eyes. patient also complaining of mild blurry vision and clear eye discharge. patient denies having any RIDER, focal neurological weakness, CP, SOB, abd pain, N/V/d/C, F/C. She is passing gas. Objective - Vital Signs/Intake and Output Vital Signs (last 24 hours): Temp Pulse Resp BP Pulse Ox 97.9 F 66 20 122/75 93 L 03/01/19 11:10 03/01/19 11:10 03/01/19 11:10 03/01/19 11:10 03/01/19 11:10 Intake and Output: 03/01/19 03/01/19 06:59 18:59 Intake Total 500 865 Balance 500 865 - Medications Medications: Current Medications Aspirin (Ecotrin) 81 mg PO DAILY [facility] Last Admin: 03/01/19 10:52 Dose: Not Given Brimonidine Tartrate (Alphagan 0.2% Opht) 1 ml OU BID [facility] Last Admin: 03/01/19 10:52 Dose: Not Given Enoxaparin Sodium (Lovenox) 40 mg SC DAILY [facility] Last Admin: 02/28/19 09:54 Dose: Not Given Gabapentin (Neurontin) 300 mg PO HS [facility] Last Admin: 02/28/19 21:04 Dose: 300 mg Home Med (Patient's Own Drops) 1 drop OU [facility] Last Admin: 02/28/19 21:08 Dose: 1 drop Sodium Chloride (Sodium Chloride 0.9%) 1,000 mls @ 100 mls/hr IV .Q10H [facility] Last Admin: 03/01/19 13:40 Dose: 100 mls/hr Piperacillin Sod/Tazobactam (Sod 2.25 gm/ Sodium Chloride) 100 mls @ 200 mls/hr IVPB Q8H [facility]; Protocol Last Admin: 03/01/19 13:40 Dose: 200 mls/hr Levothyroxine Sodium (Synthroid) 75 mcg PO DAILY@0630 [facility] Last Admin: 03/01/19 05:30 Dose: Not Given Nebivolol (Bystolic) 10 mg PO DAILY [facility] Last Admin: 03/01/19 10:52 Dose: Not Given Pantoprazole Sodium (Protonix Inj) 40 mg IVP DAILY [facility] Last Admin: 03/01/19 10:52 Dose: Not Given Pneumococcal Polyvalent Vaccine (Pneumovax 23 Vaccine) 0.5 ml IM .ONCE ONE Stop: 03/01/19 16:01 Rosuvastatin Calcium (Crestor) 5 mg PO HS [facility] Last Admin: 02/26/19 22:20 Dose: 5 mg - Labs Labs: 02/28/19 06:19 02/28/19 06:19 - Constitutional Appears: Non-toxic, No Acute Distress - Head Exam Head Exam: ATRAUMATIC, NORMOCEPHALIC - Eye Exam Eye Exam: EOMI, Normal appearance, PERRL - ENT Exam ENT Exam: Mucous Membranes Moist - Respiratory Exam Respiratory Exam: Clear to Ausculation Bilateral. absent: Rales, Rhonchi, Wheezes - Cardiovascular Exam Cardiovascular Exam: REGULAR RHYTHM, +S1, +S2. absent: Gallop, Rubs, Murmur - GI/Abdominal Exam GI & Abdominal Exam: Soft, Tenderness, Normal Bowel Sounds. absent: Distended, Firm, Guarding - Extremities Exam Extremities Exam: absent: Pedal Edema, Tenderness - Neurological Exam Neurological Exam: Alert, Awake, Oriented x3 - Psychiatric Exam Psychiatric exam: Normal Affect, Normal Mood Assessment and Plan - Assessment and Plan (Free Text) Assessment: Cholecystitis s/p cholecystectomy POD #0 Currently on CLD. will advance per surgery recs Pain management: Lap B/L TAP block placement Continue Abx Zosyn CT A/P (02/26/19): Gallstone and diffuse GB wall thickening. No definite evidence of acute dedrick. US recommended. US (02/26/19): possible GB adenomyomatosis. Mildly echogenic liver suggestive of hepatic steatosis. Endoscopy (02/26/19): Reflux esophagitis. Gastritis. Hiatal hernia. MRCP without filling defect GI solar energy consultant and designer, Dr. Lao EGD done on 02/27 showed inflammation on esophagus, stomach and duodenum. Pat hology pending. health consultant, Dr. Hamilton Elevated LFTs Autoantibodies negative. Hep panel negative Glaucoma continue home med brimonidine .2%. patient uses 0.1% at home but we do not carry that dosage. Corneal irritation Will start patient on tobradex 1-2 gtt in eye q4 h HTN Bystolic 10mg PO DAily Hypothyroidism TSH 2.03 Synthroid 75mcg PO daily Hyperlipidemia Crestor 5mg PO HS CKD, stage III Dr. Anderson, Nephro solar energy consultant and designer GFR of 39, Cr 1.6 is baseline PPX Lovenox 40mg SC Daily ASA 81mg PO daily Protonix 40mg IV Daily SCDs d/w Dr. Chavez
[2019-03-01 15:24] LABS: BASO % 0.3 % (0.0-2.0); EOS % 0.4 % (0.0-4.0); HEMOGLOBIN 12.5 g/dL (11.0-16.0); LYMPH # 1.1 K/uL (1.0-4.3); LYMPH % 10.7 % (20.0-40.0); MEAN CELL VOLUME 93.8 fL (81.0-99.0); MEAN CORPUSCULAR HEMOGLOBIN 30.8 pg (27.0-31.0); MEAN CORPUSCULAR HGB CONC 32.9 g/dL (33.0-37.0); MEAN PLATELET VOLUME 10.3 fL (7.2-11.7); MONO # 0.8 K/uL (0.0-0.8); MONO % 7.6 % (0.0-10.0); NEUT # 8.4 K/uL (1.8-7.0); RBC 4.06 Mil/uL (3.80-5.20); RED CELL DISTRIBUTION WIDTH 14.3 % (11.5-14.5)
[2019-03-01 15:25] LABS: WHITE BLOOD COUNT 10.4 K/uL (4.8-10.8)
[2019-03-01 15:35] LABS: ALB/GLOB RATIO 1.3 (1.0-2.1); ALBUMIN 3.7 g/dL (3.5-5.0); ALBUMIN 3.8 g/dL (3.5-5.0); CALCIUM 8.8 mg/dl (8.6-10.4); CALCIUM 8.9 mg/dl (8.6-10.4)
[2019-03-01 15:40] LABS: INR 1.1; PROTHROMBIN TIME 11.7 SECONDS (9.7-12.2)
[2019-03-01] MEDS: Tobramycin/Dexamethasone (Tobradex) Opth Sol (2.5 ml) OU SCH ×2 (19:40→21:49)
--- NOTE | 2019-03-01 19:45 | CP.PCM.PN ---
Subjective - Date & Time of Evaluation Date of Evaluation: 03/01/19 - Subjective Subjective: patient examined today no nausea no vomiting no fever no diarrhea no shortness of breath Objective - Vital Signs/Intake and Output Vital Signs (last 24 hours): Temp Pulse Resp BP Pulse Ox 98.8 F 62 20 121/77 97 03/01/19 16:00 03/01/19 16:00 03/01/19 16:00 03/01/19 16:00 03/01/19 16:00 Intake and Output: 03/01/19 03/02/19 18:59 06:59 Intake Total 1565 Balance 1565 - Medications Medications: Current Medications Aspirin (Ecotrin) 81 mg PO DAILY [facility] Last Admin: 03/01/19 10:52 Dose: Not Given Brimonidine Tartrate (Alphagan 0.2% Opht) 1 ml OU BID [facility] Last Admin: 03/01/19 10:52 Dose: Not Given Enoxaparin Sodium (Lovenox) 40 mg SC DAILY [facility] Last Admin: 02/28/19 09:54 Dose: Not Given Gabapentin (Neurontin) 300 mg PO HS [facility] Last Admin: 02/28/19 21:04 Dose: 300 mg Home Med (Patient's Own Drops) 1 drop OU HS [facility] Last Admin: 02/28/19 21:08 Dose: 1 drop Piperacillin Sod/Tazobactam (Sod 2.25 gm/ Sodium Chloride) 100 mls @ 200 mls/hr IVPB Q8H [facility]; Protocol Last Admin: 03/01/19 19:40 Dose: 200 mls/hr Levothyroxine Sodium (Synthroid) 75 mcg PO DAILY@0630 [facility] Last Admin: 03/01/19 05:30 Dose: Not Given Nebivolol (Bystolic) 10 mg PO DAILY [facility] Last Admin: 03/01/19 10:52 Dose: Not Given Pantoprazole Sodium (Protonix Inj) 40 mg IVP DAILY [facility] Last Admin: 03/01/19 10:52 Dose: Not Given Pneumococcal Polyvalent Vaccine (Pneumovax 23 Vaccine) 0.5 ml IM .ONCE ONE Stop: 03/02/19 10:01 Rosuvastatin Calcium (Crestor) 5 mg PO HS [facility] Last Admin: 02/26/19 22:20 Dose: 5 mg Tobramycin/Dexamethasone (Tobradex Opht Susp) 0 ml OU Q4 [facility] Stop: 03/02/19 14:23 Last Admin: 03/01/19 19:40 Dose: 1 drop - Labs Labs: 03/01/19 15:04 03/01/19 15:04 PT 11.7 SECONDS (9.7-12.2) 03/01/19 15:04 INR 1.1 03/01/19 15:04 APTT 31 SECONDS (21-34) 03/01/19 15:04 - Constitutional Appears: Well - Head Exam Head Exam: ATRAUMATIC, NORMAL INSPECTION, NORMOCEPHALIC - Eye Exam Eye Exam: EOMI, Normal appearance, PERRL Pupil Exam: NORMAL ACCOMODATION, PERRL - ENT Exam ENT Exam: Mucous Membranes Moist, Normal Exam - Neck Exam Neck Exam: Full ROM, Normal Inspection. absent: Lymphadenopathy - Respiratory Exam Respiratory Exam: Decreased Breath Sounds - Cardiovascular Exam Cardiovascular Exam: REGULAR RHYTHM, +S1, +S2 - GI/Abdominal Exam GI & Abdominal Exam: Diminished Bowel Sounds - Rectal Exam Rectal Exam: Deferred Assessment and Plan - Assessment and Plan (Free Text) Plan: medications reviewed labs reviewed vitals reviewed
[2019-03-01] MEDS: TRAVATAN Z 0.004% OPHTHALMIC SOLN OU SCH (21:41)
[2019-03-02] MEDS: Tobramycin/Dexamethasone (Tobradex) Opth Sol (2.5 ml) OU SCH ×4 (00:27→13:18)
--- NOTE | 2019-03-02 00:38 | OP ---
PROCEDURE DATE: 03/01/2019 PREOPERATIVE DIAGNOSES: 1. Cholelithiasis with possible cholecystitis. 2. Abdominal pain. POSTOPERATIVE DIAGNOSES: 1. Cholelithiasis with possible cholecystitis. 2. Abdominal pain. PROCEDURES DONE: 1. Robotic cholecystectomy. 2. Laparoscopic bilateral transversus abdominis plane placement. SURGEON: Pasquale Hamilton MD LAB CLERK: NITA Colin ANESTHESIA: General endotracheal tube anesthesia. ESTIMATED BLOOD LOSS: Around 10 mL. DRAIN: None. PATHOLOGY: Gallbladder with gallstones sent to the Pathology. COMPLICATIONS: None. INTRAOPERATIVE FINDINGS: The patient had chronic cholecystitis and cholelithiasis. There was no peritoneal adhesion identified in the right upper quadrant. DESCRIPTION OF PROCEDURE: On intraoperative steps, this is a 68-year-old female who was diagnosed with chronic cholecystitis and cholelithiasis. The patient was consented for robotic cholecystectomy, possible open. Brought to the OR, placed supine on the operating table. After induction of the anesthesia, the abdomen was prepped and draped in the usual sterile fashion. A supraumbilical transverse incision was made using open technique. Peritoneal cavity was entered. Pneumo was created. Another 3-8 mm port was placed in the upper abdomen. Robot was brought in. Camera arm as well as arm-1 and arm-2 were docked. Gallbladder was resected cranially. Calot's triangle dissection was done. Cystic duct and cystic artery were identified and clipped at three places and cut in between two clips in the gallbladder. The top-down approach was done. Critical view of safety was identified as well as intraoperative Firefly was used to identify the ductal anatomy and after proper hemostasis, gallbladder was taken into an EndoCatch bag, taken out through the umbilical port site and then sent off the table for the pathology. Bilateral laparoscopic TAP block was given. A 30:30 mL of Marcaine was injected into the transverse abdominis muscle plane and after proper TAP block, all the ports were taken out under vision. The robot was undocked. The pneumo was deflated. The umbilical port site was closed in two layers, the fascia with 0 Vicryl interrupted suture and skin with a 4-0 Monocryl. Dry sterile dressing was applied. The patient tolerated the procedure well. Count of instrument and gauze was correct. There were no apparent complications. Pasquale Hamilton MD [facility] # [id number]
[2019-03-02] MEDS: Piperacillin/Tazobact 2.25 GM in Sodium Chloride 100 ML IVPB SCH ×2 (03:47→13:17)
[2019-03-02] MEDS: Levothyroxine 75 MCG TAB PO SCH (05:39)
[2019-03-02 08:56] LABS: ALB/GLOB RATIO 1.5 (1.0-2.1); ALBUMIN 4.1 g/dL (3.5-5.0); CALCIUM 9.2 mg/dl (8.6-10.4)
[2019-03-02] MEDS ORDERED: Pneumococcal 23-Valent Vaccine SC ONE (10:00)
[2019-03-02] MEDS ORDERED: Pneumococcal 23-Valent Vaccine IM ONE (10:00)
[2019-03-02] MEDS: Enoxaparin 40 mg Syringe SC SCH (10:42)
[2019-03-02] MEDS: Brimonidine 0.2% Opth Sol (5ml) OU SCH (10:46)
--- NOTE | 2019-03-02 14:59 | CP.PCM.PN ---
Subjective - Date & Time of Evaluation Date of Evaluation: 03/02/19 Objective - Vital Signs/Intake and Output Vital Signs (last 24 hours): Temp Pulse Resp BP Pulse Ox 99 F 69 20 127/79 95 03/02/19 08:00 03/02/19 10:48 03/02/19 08:00 03/02/19 10:48 03/02/19 08:00 Intake and Output: 03/02/19 03/02/19 06:59 18:59 Intake Total 900 Balance 900 - Medications Medications: Current Medications Aspirin (Ecotrin) 81 mg PO DAILY [facility] Last Admin: 03/02/19 10:42 Dose: 81 mg Brimonidine Tartrate (Alphagan 0.2% Opht) 1 ml OU BID [facility] Last Admin: 03/02/19 10:46 Dose: 1 drop Enoxaparin Sodium (Lovenox) 40 mg SC DAILY [facility] Last Admin: 03/02/19 10:42 Dose: 40 mg Gabapentin (Neurontin) 300 mg PO HS [facility] Last Admin: 03/01/19 21:41 Dose: 300 mg Home Med (Patient's Own Drops) 1 drop OU HS [facility] Last Admin: 03/01/19 21:41 Dose: 1 drop Piperacillin Sod/Tazobactam (Sod 2.25 gm/ Sodium Chloride) 100 mls @ 200 mls/hr IVPB Q8H [facility]; Protocol Last Admin: 03/02/19 13:17 Dose: 200 mls/hr Levothyroxine Sodium (Synthroid) 75 mcg PO DAILY@0630 [facility] Last Admin: 03/02/19 05:39 Dose: 75 mcg Nebivolol (Bystolic) 10 mg PO DAILY [facility] Last Admin: 03/02/19 10:42 Dose: 10 mg Pantoprazole Sodium (Protonix Inj) 40 mg IVP DAILY [facility] Last Admin: 03/02/19 10:43 Dose: 40 mg Rosuvastatin Calcium (Crestor) 5 mg PO HS [facility] Last Admin: 02/26/19 22:20 Dose: 5 mg - Labs Labs: 03/01/19 15:04 03/02/19 08:34 PT 11.7 SECONDS (9.7-12.2) 03/01/19 15:04 INR 1.1 03/01/19 15:04 APTT 31 SECONDS (21-34) 03/01/19 15:04 - Constitutional Appears: Well - Head Exam Head Exam: ATRAUMATIC, NORMAL INSPECTION, NORMOCEPHALIC - Eye Exam Eye Exam: EOMI, Normal appearance, PERRL Pupil Exam: NORMAL ACCOMODATION, PERRL - ENT Exam ENT Exam: Mucous Membranes Moist, Normal Exam - Neck Exam Neck Exam: Full ROM, Normal Inspection. absent: Lymphadenopathy - Respiratory Exam Respiratory Exam: Decreased Breath Sounds - Cardiovascular Exam Cardiovascular Exam: REGULAR RHYTHM, +S1, +S2 - GI/Abdominal Exam GI & Abdominal Exam: Diminished Bowel Sounds - Rectal Exam Rectal Exam: Deferred - Neurological Exam Neurological Exam: Oriented x3 Assessment and Plan - Assessment and Plan (Free Text) Plan: medications reviewed labs reivewed vitals reviewed Pain management: Lap B/L TAP block placement Pt on zosyn CT A/P (02/26/19): Gallstone and diffuse GB wall thickening. No definite evidence of acute dedrick. US recommended. US (02/26/19): possible GB adenomyomatosis. Mildly echogenic liver suggestive of hepatic steatosis. Endoscopy (02/26/19): Reflux esophagitis. Gastritis. Hiatal hernia. MRCP without filling defect GI apartment leasing consultant, Dr. Lao EGD done on 02/27 showed inflammation on esophagus, stomach and duodenum. Pathology pending. principal consultant, Dr. Hamilton Elevated LFTs Autoantibodies negative. Hep panel negative Glaucoma continue home med brimonidine .2%. patient uses 0.1% at home but we do not carry that dosage. Corneal irritation Will start patient on tobradex 1-2 gtt in eye q4 h HTN Bystolic 10mg PO DAily Hypothyroidism TSH 2.03 Synthroid 75mcg PO daily Hyperlipidemia Crestor 5mg PO HS CKD, stage III Dr. Anderson, Nephro apartment leasing consultant GFR of 39, Cr 1.6 is baseline PPX Lovenox 40mg SC Daily ASA 81mg PO daily Protonix 40mg IV Daily SCDs d/w Dr. Chavez Patient is stable for discharge home per Dr. Chavez Patient is to follow up with Dr. Chavez upon discharge. Referral is provided for patient Patient is to follow up with surgeon in 1 week. Referral provided. Patient is to continue taking home medications like prescribed: Alphagan 0.1% Amlodipine 5 mg po qd Aspirin 81 mg po qd Gabapentin 300 mg po QD Levothyroxine 75 mcg po qd Bystolic 10 mg po qd Crestor 5 mg po qd Patient is admitted for abdominal pain with possible gallstone versus cholecystitis which was ruled out underwent a MRCP seen by GI doctor also seen by surgical doctor also underwent endoscopy which revealed esophagitis duodenitis and eventually patient was discharged with pathology report to be followed up as an outpt
--- NOTE | 2019-03-02 15:13 | CP.PCM.PN ---
<Martha Bauer - Last Filed: 03/02/19 15:10> Subjective - Date & Time of Evaluation Date of Evaluation: 03/02/19 Time of Evaluation: 15:10 - Subjective Subjective: PGY3 progress note for Dr. Chavez Pt seen and examined at bedside. Patient is sitting up comfortably. Pt only complaining of mild abdominal pain with ambulation. Patient is passing gas but has not had a BM today. Tolerating diet. Denies having any N/V, f/C, CP, SOB. Objective - Vital Signs/Intake and Output Vital Signs (last 24 hours): Temp Pulse Resp BP Pulse Ox 99 F 69 20 127/79 95 03/02/19 08:00 03/02/19 10:48 03/02/19 08:00 03/02/19 10:48 03/02/19 08:00 Intake and Output: 03/02/19 03/02/19 06:59 18:59 Intake Total 900 Balance 900 - Medications Medications: Current Medications Aspirin (Ecotrin) 81 mg PO DAILY [facility] Last Admin: 03/02/19 10:42 Dose: 81 mg Brimonidine Tartrate (Alphagan 0.2% Opht) 1 ml OU BID [facility] Last Admin: 03/02/19 10:46 Dose: 1 drop Enoxaparin Sodium (Lovenox) 40 mg SC DAILY [facility] Last Admin: 03/02/19 10:42 Dose: 40 mg Gabapentin (Neurontin) 300 mg PO HS [facility] Last Admin: 03/01/19 21:41 Dose: 300 mg Home Med (Patient's Own Drops) 1 drop OU HS [facility] Last Admin: 03/01/19 21:41 Dose: 1 drop Piperacillin Sod/Tazobactam (Sod 2.25 gm/ Sodium Chloride) 100 mls @ 200 mls/hr IVPB Q8H [facility]; Protocol Last Admin: 03/02/19 13:17 Dose: 200 mls/hr Levothyroxine Sodium (Synthroid) 75 mcg PO DAILY@0630 [facility] Last Admin: 03/02/19 05:39 Dose: 75 mcg Nebivolol (Bystolic) 10 mg PO DAILY [facility] Last Admin: 03/02/19 10:42 Dose: 10 mg Pantoprazole Sodium (Protonix Inj) 40 mg IVP DAILY [facility] Last Admin: 03/02/19 10:43 Dose: 40 mg Rosuvastatin Calcium (Crestor) 5 mg PO HS [facility] Last Admin: 02/26/19 22:20 Dose: 5 mg - Labs Labs: 03/01/19 15:04 03/02/19 08:34 PT 11.7 SECONDS (9.7-12.2) 03/01/19 15:04 INR 1.1 03/01/19 15:04 APTT 31 SECONDS (21-34) 03/01/19 15:04 - Constitutional Appears: Non-toxic, No Acute Distress - Head Exam Head Exam: ATRAUMATIC, NORMOCEPHALIC - ENT Exam ENT Exam: Mucous Membranes Moist - Respiratory Exam Respiratory Exam: Clear to Ausculation Bilateral. absent: Rales, Rhonchi, Wheezes - GI/Abdominal Exam GI & Abdominal Exam: Soft, Normal Bowel Sounds. absent: Firm, Guarding, Rigid, Tenderness - Extremities Exam Extremities Exam: absent: Pedal Edema, Tenderness - Neurological Exam Neurological Exam: Alert, Awake, Oriented x3 - Psychiatric Exam Psychiatric exam: Normal Affect, Normal Mood - Skin Skin Exam: Dry, Intact, Normal Color, Warm Assessment and Plan - Assessment and Plan (Free Text) Assessment: Cholecystitis s/p cholecystectomy POD #1 Pain management: Lap B/L TAP block placement Pt on zosyn CT A/P (02/26/19): Gallstone and diffuse GB wall thickening. No definite evidence of acute dedrick. US recommended. US (02/26/19): possible GB adenomyomatosis. Mildly echogenic liver suggestive of hepatic steatosis. Endoscopy (02/26/19): Reflux esophagitis. Gastritis. Hiatal hernia. MRCP without filling defect GI residential sales consultant, Dr. Lao EGD done on 02/27 showed inflammation on esophagus, stomach and duodenum. Pathology pending. consultant dietitian, Dr. Hamilton Elevated LFTs Autoantibodies negative. Hep panel negative Glaucoma continue home med brimonidine .2%. patient uses 0.1% at home but we do not carry that dosage. Corneal irritation Will start patient on tobradex 1-2 gtt in eye q4 h HTN Bystolic 10mg PO DAily Hypothyroidism TSH 2.03 Synthroid 75mcg PO daily Hyperlipidemia Crestor 5mg PO HS CKD, stage III Dr. Anderson, Nephro residential sales consultant GFR of 39, Cr 1.6 is baseline PPX Lovenox 40mg SC Daily ASA 81mg PO daily Protonix 40mg IV Daily SCDs d/w Dr. Chavez Patient is stable for discharge home per Dr. Chavez Patient is to follow up with Dr. Chavez upon discharge. Referral is provided for patient Patient is to follow up with surgeon in 1 week. Referral provided. Patient is to continue taking home medications like prescribed: Alphagan 0.1% Amlodipine 5 mg po qd Aspirin 81 mg po qd Gabapentin 300 mg po QD Levothyroxine 75 mcg po qd Bystolic 10 mg po qd Crestor 5 mg po qd Please return to ED if symptoms worsen. <Stef Chavez - Last Filed: 03/05/19 10:09> Objective - Vital Signs/Intake and Output Vital Signs (last 24 hours): Temp Pulse Resp BP Pulse Ox 98.9 F 65 20 118/73 96 03/02/19 16:07 03/02/19 16:07 03/02/19 16:07 03/02/19 16:07 03/02/19 16:07 - Labs Labs: 03/01/19 15:04 03/02/19 08:34 PT 11.7 SECONDS (9.7-12.2) 03/01/19 15:04 INR 1.1 03/01/19 15:04 APTT 31 SECONDS (21-34) 03/01/19 15:04 Attending/Attestation - Attestation I have personally seen and examined this patient.: Yes I have fully participated in the care of the patient.: Yes I have reviewed all pertinent clinical information, including history, physical exam and plan: Yes Notes (Text): 03/05/19 10:08 case seen and d.w staff and resident, concurred with finding and management..Patient admitted with the gallstones cholecystitis ruled out status post GI endoscopy
[2019-03-02 16:08] VITALS: BP 118/73; PULSE 65; TEMP 98.9; O2SAT 96
--- NOTE | 2019-03-02 19:33 | CP.PCM.PN ---
Subjective - Date & Time of Evaluation Date of Evaluation: 03/02/19 Time of Evaluation: 13:45 - Subjective Subjective: Surgery Progress Note- Dr. Hamilton Patient seen and examined at bedside. No new complaints. tolerating regular diet. + OOB and ambulating. Denies fevers, chills, chest pain, shortness of breath. Objective - Vital Signs/Intake and Output Vital Signs (last 24 hours): Temp Pulse Resp BP Pulse Ox 98.9 F 65 20 118/73 96 03/02/19 16:07 03/02/19 16:07 03/02/19 16:07 03/02/19 16:07 03/02/19 16:07 Intake and Output: 03/02/19 03/03/19 18:59 06:59 Intake Total 900 Balance 900 - Labs Labs: 03/01/19 15:04 03/02/19 08:34 PT 11.7 SECONDS (9.7-12.2) 03/01/19 15:04 INR 1.1 03/01/19 15:04 APTT 31 SECONDS (21-34) 03/01/19 15:04 - Constitutional Appears: Non-toxic, No Acute Distress - Eye Exam Eye Exam: EOMI. absent: Scleral icterus - ENT Exam ENT Exam: Mucous Membranes Moist - Respiratory Exam Respiratory Exam: NORMAL BREATHING PATTERN. absent: Accessory Muscle Use, Respiratory Distress - GI/Abdominal Exam GI & Abdominal Exam: Soft, Tenderness (minimally tender around incisions). absent: Distended, Firm, Guarding, Rigid Additional comments: incisions C/D/I - Neurological Exam Neurological Exam: Alert, Oriented x3 - Skin Skin Exam: Intact, Normal Color, Warm Assessment and Plan - Assessment and Plan (Free Text) Assessment: 68F s/p Robotic Cholecystectomy POD1 Plan: - Diet as tolerated - Pain control PRN - Out of bed and ambulate - cleared for discharge from surgical standpoint - discussed w/ Dr. Hamilton Surgical attending PGY2
--- NOTE | 2019-03-05 10:06 | CP.PCM.DIS ---
Provider - Provider Date of Admission: 02/27/19 16:58 Attending physician: Allyn Chavez MD Consults: 02/26/19 07:00 Nephrology Consult Routine Comment: Consulting Provider: Elier Anderson Consulting Physician: Elier Anderson Reason for Consult: Abnormal LFTs 02/26/19 13:08 General Surgery Consult Routine Comment: Dr. Hamilton already saw pt. Consulting Provider: Pasquale Hamilton Consulting Physician: Pasquale Hamilton Reason for Consult: Abd Pain 02/27/19 14:13 Cardiology Consult Routine Comment: CARDIAC CLEARANCE Consulting Provider: Andre Rudd Consulting Physician: Andre Rudd Reason for Consult: CARDIAC CLEARANCE Time Spent in preparation of Discharge (in minutes): 25 Diagnosis - Discharge Diagnosis (1) Abdominal pain Status: Acute (2) Abnormal liver function test Status: Acute (3) Arthralgia of left knee Status: Acute Hospital Course - Lab Results Lab Results: Most Recent Lab Values WBC 10.4 K/uL (4.8-10.8) D 03/01/19 15:04 RBC 4.06 Mil/uL (3.80-5.20) 03/01/19 15:04 Hgb 12.5 g/dL (11.0-16.0) 03/01/19 15:04 Hct 38.1 % (34.0-47.0) 03/01/19 15:04 MCV 93.8 fL (81.0-99.0) 03/01/19 15:04 MCH 30.8 pg (27.0-31.0) 03/01/19 15:04 MCHC 32.9 g/dL (33.0-37.0) L 03/01/19 15:04 RDW 14.3 % (11.5-14.5) 03/01/19 15:04 Plt Count 183 K/uL (130-400) 03/01/19 15:04 MPV 10.3 fL (7.2-11.7) 03/01/19 15:04 Neut % (Auto) 81.0 % (50.0-75.0) H 03/01/19 15:04 Lymph % (Auto) 10.7 % (20.0-40.0) L 03/01/19 15:04 [place] % (Auto) 7.6 % (0.0-10.0) 03/01/19 15:04 Eos % (Auto) 0.4 % (0.0-4.0) 03/01/19 15:04 Baso % (Auto) 0.3 % (0.0-2.0) 03/01/19 15:04 Neut # (Auto) 8.4 K/uL (1.8-7.0) H 03/01/19 15:04 Lymph # (Auto) 1.1 K/uL (1.0-4.3) 03/01/19 15:04 [place] # (Auto) 0.8 K/uL (0.0-0.8) 03/01/19 15:04 Eos # (Auto) 0.0 K/uL (0.0-0.7) 03/01/19 15:04 Baso # (Auto) 0.0 K/uL (0.0-0.2) 03/01/19 15:04 PT 11.7 SECONDS (9.7-12.2) 03/01/19 15:04 INR 1.1 03/01/19 15:04 APTT 31 SECONDS (21-34) 03/01/19 15:04 Sodium 138 mmol/L (132-148) 03/02/19 08:34 Potassium 4.2 mmol/L (3.6-5.2) 03/02/19 08:34 Chloride 105 mmol/L (98-107) 03/02/19 08:34 Carbon Dioxide 26 mmol/L (22-30) 03/02/19 08:34 Anion Gap 11 (10-20) 03/02/19 08:34 BUN 19 mg/dL (7-17) H 03/02/19 08:34 Creatinine 1.6 mg/dL (0.7-1.2) H 03/02/19 08:34 Est GFR ( Amer) 39 03/02/19 08:34 Est GFR (Non-Af Amer) 32 03/02/19 08:34 Random Glucose 90 mg/dL (65-105) D 03/02/19 08:34 Calcium 9.2 mg/dl (8.6-10.4) 03/02/19 08:34 Phosphorus 4.0 mg/dL (2.5-4.5) 03/01/19 15:04 Magnesium 1.5 mg/dL (1.6-2.3) L 03/01/19 15:04 Iron 86 ug/dL (37-170) 02/27/19 17:16 TIBC 319 ug/dL (250-450) 02/27/19 17:16 % Saturation 27 (20-55) 02/27/19 17:16 Transferrin 222.73 mg/dL (206-381) 02/27/19 10:02 Ferritin 120.0 ng/mL 02/27/19 07:28 Total Bilirubin 0.7 mg/dL (0.2-1.3) 03/02/19 08:34 Direct Bilirubin 0.2 mg/dL (0.0-0.4) 02/26/19 08:55 AST 83 U/L (14-36) H 03/02/19 08:34 ALT 129 U/L (9-52) H 03/02/19 08:34 Alkaline Phosphatase 74 U/L (38-126) 03/02/19 08:34 Troponin I < 0.0120 ng/mL (0.00-0.120) 02/25/19 17:08 Total Protein 6.8 g/dL (6.3-8.3) 03/02/19 08:34 Albumin 4.1 g/dL (3.5-5.0) 03/02/19 08:34 Globulin 2.8 gm/dL (2.2-3.9) 03/02/19 08:34 Albumin/Globulin Ratio 1.5 (1.0-2.1) 03/02/19 08:34 Lipase 203 U/L (23-300) 02/25/19 17:08 TSH 3rd Generation 2.03 mIU/L (0.46-4.68) 02/26/19 08:55 Urine Color Yellow (YELLOW) 02/25/19 16:54 Urine Clarity Clear (Clear) 02/25/19 16:54 Urine pH 5.0 (5.0-8.0) 02/25/19 16:54 Ur Specific [place] 1.011 (1.003-1.030) 02/25/19 16:54 Urine Protein Negative mg/dL (NEGATIVE) 02/25/19 16:54 Urine Glucose (UA) Normal mg/dL (Normal) 02/25/19 16:54 Urine Ketones Negative mg/dL (NEGATIVE) 02/25/19 16:54 Urine Blood Negative (NEGATIVE) 02/25/19 16:54 Urine Nitrate Negative (NEGATIVE) 02/25/19 16:54 Urine Bilirubin Negative (NEGATIVE) 02/25/19 16:54 Urine Urobilinogen Normal mg/dL (0.2-1.0) 02/25/19 16:54 Ur Leukocyte Esterase Neg [place]/uL (Negative) 02/25/19 16:54 Urine WBC (Auto) 3 /hpf (0-5) 02/25/19 16:54 Urine RBC (Auto) 1 /hpf (0-3) 02/25/19 16:54 Ur Squamous Epith Cells 1 /hpf (0-5) 02/25/19 16:54 Urine Bacteria Rare (<OCC) 02/25/19 16:54 Hyaline Casts 3-5 /lpf (0-2) H 02/25/19 16:54 IgG 1040.3 mg/dL (700.0-1600.0) 02/27/19 10:02 KHADRA Screen Negative (Negative) 03/01/19 15:09 Anti-Mitochondrial Ab Negative (Negative) 02/27/19 11:15 Actin IgG Antibody <20 U (<20) 02/27/19 11:15 Hepatitis A IgM Ab Negative (NEGATIVE) 02/26/19 08:55 Hep Bs Antigen Negative (NEGATIVE) 02/26/19 08:55 Hep B Core IgM Ab Negative (NEGATIVE) 02/26/19 08:55 Hepatitis C Antibody Negative (NEGATIVE) 02/26/19 08:55 Blood Type A POSITIVE 02/27/19 07:28 Antibody Screen Negative 02/27/19 07:28 - Hospital Course Hospital Course: Pain management: Lap B/L TAP block placement Pt on zosyn CT A/P (02/26/19): Gallstone and diffuse GB wall thickening. No definite evidence of acute dedrick. US recommended. US (02/26/19): possible GB adenomyomatosis. Mildly echogenic liver suggestive of hepatic steatosis. Endoscopy (02/26/19): Reflux esophagitis. Gastritis. Hiatal hernia. MRCP without filling defect GI sap business objects consultant, Dr. Lao EGD done on 4/8 showed inflammation on esophagus, stomach and duodenum. Pathology pending. technology consultant, Dr. Hamilton Elevated LFTs Autoantibodies negative. Hep panel negative Glaucoma continue home med brimonidine .2%. patient uses 0.1% at home but we do not carry that dosage. Corneal irritation Will start patient on tobradex 1-2 gtt in eye q4 h HTN Bystolic 10mg PO DAily Hypothyroidism TSH 2.03 Synthroid 75mcg PO daily Hyperlipidemia Crestor 5mg PO HS CKD, stage III Dr. Anderson, Nephro sap business objects consultant GFR of 39, Cr 1.6 is baseline PPX Lovenox 40mg SC Daily ASA 81mg PO daily Protonix 40mg IV Daily SCDs d/w Dr. Chavez Patient is stable for discharge home per Dr. Chavez Patient is to follow up with Dr. Chavez upon discharge. Referral is provided for patient Patient is to follow up with surgeon in 1 week. Referral provided. Patient is to continue taking home medications like prescribed: Alphagan 0.1% Amlodipine 5 mg po qd Aspirin 81 mg po qd Gabapentin 300 mg po QD Levothyroxine 75 mcg po qd Bystolic 10 mg po qd Crestor 5 mg po qd Patient is admitted for abdominal pain with possible gallstone versus cholecystitis which was ruled out underwent a MRCP seen by GI doctor also seen by surgical doctor also underwent endoscopy which revealed esophagitis duodenitis and eventually patient was discharged with pathology report to be followed up as an outpt Discharge Exam - Head Exam Head Exam: ATRAUMATIC, NORMOCEPHALIC - Eye Exam Eye Exam: EOMI, Normal appearance, PERRL Pupil Exam: NORMAL ACCOMODATION, PERRL - Respiratory Exam Respiratory Exam: Decreased Breath Sounds - Cardiovascular Exam Cardiovascular Exam: REGULAR RHYTHM, +S1, +S2 - GI/Abdominal Exam GI & Abdominal Exam: Diminished Bowel Sounds, Distended - Rectal Exam Rectal Exam: Deferred - Neurological Exam Neurological exam: Oriented x3 Discharge Plan - Discharge Medications Prescriptions: Aspirin [Aspirin Chewable] 81 mg PO DAILY #30 chew Nebivolol [Bystolic] 10 mg PO DAILY #30 tab Rosuvastatin Calcium [Crestor] 5 mg PO DAILY #30 tablet Gabapentin 300 mg PO HS #30 capsule Levothyroxine Sodium [Levoxyl] 75 mcg PO DAILY #30 tablet amLODIPine [Norvasc] 5 mg PO DAILY #30 tab - Follow Up Plan Condition: STABLE Disposition: HOME/ ROUTINE Instructions: Nebivolol, Cholecystectomy (DC), [place] Diet, Amlodipine, Aspirin, Gabapentin, Levothyroxine, Rosuvastatin Additional Instructions: Patient is stable for discharge home per Dr. Chavez Patient is to follow up with Dr. Chavez upon discharge. Referral is provided for patient Patient is to follow up with surgeon in 1 week. Referral provided. Patient is to continue taking home medications like prescribed: Alphagan 0.1% Amlodipine 5 mg po qd Aspirin 81 mg po qd Gabapentin 300 mg po QD Levothyroxine 75 mcg po qd Bystolic 10 mg po qd Crestor 5 mg po qd Please return to ED if symptoms worsen. El paciente se encuentra estable para el alexei hospitalaria segn el Dr. Chavez El paciente debe hacer un seguimiento con el Dr. Chavez despus del alexei. Se proporciona referencia para el paciente El paciente debe hacer un seguimiento con el cirujano en 1 semana. Referencia proporcionada. El paciente debe continuar tomando medicamentos caseros gissel los recetados: Alphagan 0.1% Amlodipina 5 mg po qd Aspirina 81 mg po qd Gabapentina 300 mg po QD Levothyroxine 75 mcg po qd Bystolic 10 mg po qd Crestor 5 mg po qd Por favor regrese a la ED si los sntomas empeoran. Referrals: Andre Rudd MD [Staff Provider] - Elier Anderson MD [Staff Provider] - Ronald Lao MD [Staff Provider] - Stef Chavez MD [Staff Provider] - Pasquale Hamilton MD [Staff Provider] -
== END 2019-03-02 16:35 | disposition home or self-care (01) | DRG 419 ==
LOC: C.ER 15:36 → C.9E 19:02 → C.5S 23:05 → OBSVTOIN 02-27 16:58
PROVIDERS: ADMIT Internal Medicine Nephrology; ATTEND Internal Medicine Nephrology
PROC: 0DB68ZX Excision of Stomach, Via Natural or Artificial Opening Endoscopic, Diagnostic (ICD-10-PCS; 2019-02-27)
PROC: 8E0W4CZ Robotic Assisted Procedure of Trunk Region, Percutaneous Endoscopic Approach (ICD-10-PCS; 2019-03-01)
PROC: 0FT44ZZ Resection of Gallbladder, Percutaneous Endoscopic Approach (ICD-10-PCS; principal; 2019-03-01 07:30)
DX: K80.10 Calculus of gallbladder with chronic cholecystitis without obstruction (principal); K29.70 Gastritis, unspecified, without bleeding; K44.9 Diaphragmatic hernia without obstruction or gangrene; N18.3 Chronic kidney disease, stage 3 (moderate); I12.9 Hypertensive chronic kidney disease with stage 1 through stage 4 chronic kidney disease, or unspecified chronic kidney disease; H40.9 Unspecified glaucoma; E78.5 Hyperlipidemia, unspecified; E03.9 Hypothyroidism, unspecified; K21.0 Gastro-esophageal reflux disease with esophagitis; K66.8 Other specified disorders of peritoneum